=== PATIENT | female | born 1980 | race African-American/Black ===

== ENCOUNTER 2017-12-03 12:50 | Inpatient (IN) | payer OTHER ==
[2017-12-03 15:16] VITALS: BMI 22.2
--- NOTE | 2017-12-03 20:47 | HP ---
CIWA Score - CIWA Score Nausea/Vomitin Muscle Tremors: 4-Moderate,w/Arms Extend Anxiety: 4-Mod. Anxious/Guarded Agitation: 4-Moderately Restless Paroxysmal Sweats: 2 Orientation: 0-Oriented Tacttile Disturbances: 0-None Auditory Disturbances: 0-None Visual Disturbances: 0-None Headache: 0-None Present CIWA-Ar Total Score: 17 Admission ROS S - HPI Chief Complaint: Alcohol withdrawal symptoms Allergies/Adverse Reactions: Allergies Allergy/AdvReac Type Severity Reaction Status Date / Time No Known Allergies Allergy Verified 12/03/17 20:58 - Ebola screening Have you traveled outside of the country in the last 21 days: No (N) Have you had contact with anyone from an Ebola affected area: No Have you been sick,other than usual withdrawal symptoms: No Do you have a fever: No Admission Physical Exam [facility] - Vital Signs Vital Signs: Vital Signs - 24 hr 12/03/17 15:09 Temperature 97 F L Pulse Rate 91 H Respiratory 20 Rate Blood Pressure 111/67 BHS Breath Alcohol Content Breath Alcohol Content: 0 Urine Pregancy Test - Result Urine Test Results: Negative- NO Line Present Urine Drug Screen - Results Drug Screen Negative: No Urine Drug Screen Results: SINA-Cocaine, BZO-Benzodiazepines, MTD-Methadone
--- NOTE | 2017-12-03 21:52 | HP ---
CIWA Score - CIWA Score Nausea/Vomitin (VOMITING X 2) Muscle Tremors: 4-Moderate,w/Arms Extend Anxiety: 4-Mod. Anxious/Guarded Agitation: 3 Paroxysmal Sweats: No Perspiration Orientation: 0-Oriented Tacttile Disturbances: 0-None Auditory Disturbances: 0-None Visual Disturbances: 0-None Headache: 0-None Present CIWA-Ar Total Score: 14 Admission ROS S - HPI Chief Complaint: Alcohol withdrawal symptoms Allergies/Adverse Reactions: Allergies Allergy/AdvReac Type Severity Reaction Status Date / Time No Known Allergies Allergy Verified 12/03/17 20:58 History of Present Illness: 37 years female faisal a long history of alcohol dependence is admitted to detox. Patient has been in previous detox at [facility] and reports insignificant period of sobriety. Patient has past medical medical history of DM type 2, anemia and depression. Denies suicidal ideation at this time. This is her first admission to [facility]. Her urine was positive for benzodiazepine and cocaine but she asserts that her cocaine may have been tainted and that she was recently hospitalized and medicated with methadone. Exam Limitations: No Limitations - Ebola screening Have you traveled outside of the country in the last 21 days: No (N) Have you had contact with anyone from an Ebola affected area: No Have you been sick,other than usual withdrawal symptoms: No Do you have a fever: No - Review of Systems Constitutional: Chills, Loss of Appetite, Malaise, Night Sweats, Changes in sleep EENT: reports: Nose Congestion, Sinus Pressure Respiratory: reports: No Symptoms reported Cardiac: reports: No Symptoms Reported GI: reports: Poor Appetite, Poor Fluid Intake, Vomiting, Abdominal cramping : reports: No Symptoms Reported Musculoskeletal: reports: Back Pain, Muscle Pain, Muscle Weakness Integumentary: reports: Flushing Neuro: reports: Tingling, Tremors Endocrine: reports: No Symptoms Reported Hematology: reports: Anemia Psychiatric: reports: Orientated x3, Agitated, Anxious Other Systems: Reviewed and Negative Patient History - Patient Medical History Hx Anemia: Yes Hx Asthma: No Hx Chronic Obstructive Pulmonary Disease (COPD): No Hx Cardiac Disorders: No Hx Congestive Heart Failure: No Hx Hypertension: No Hx Hypercholesterolemia: No HX Cerebrovascular Accident: No Hx Seizures: No Hx Diabetes: No Hx Gastrointestinal Disorders: No Hx Liver Disease: No Hx Genitourinary Disorders: No Hx Sexually Transmitted Disorders: No Hx Human Immunodeficiency Virus (HIV): No (Negative October 2017) Hx Hepatitis C: No Hx Depression: Yes Hx Suicide Attempt: No (Denies suicidal ideation at this time) Hx Bipolar Disorder: No Hx Schizophrenia: No - Patient Surgical History Past Surgical History: No - PPD History Previous Implant?: Yes Documented Results: Negative w/o proof Implanted On Prior R Admission?: No PPD to be Administered?: Yes - Reproductive History Patient is a Female of Child Bearing Age (11 -55 yrs old): Yes LMP comment: 4 years ago. Patient : No - Smoking Cessation Smoking history: Current every day smoker Have you smoked in the past 12 months: Yes Aproximately how many cigarettes per day: 10 Hx Chewing Tobacco Use: No Initiated information on smoking cessation: Yes 'Breaking Loose' booklet given: 12/03/17 - Substance & Tx. History Hx Alcohol Use: Yes Hx Substance Use: Yes Substance Use Type: Cocaine Hx Substance Use Treatment: Yes ([facility]) - Substances Abused Alcohol Route: Oral (br) Frequency: Daily Amount used: DIANA - 2 PINTS Age of first use: 15 Date of Last Use: 12/02/17 Cocaine Route: Smoking Frequency: Daily Amount used: $50 Age of first use: 37 Date of Last Use: 12/02/17 Family Disease History - Family Disease History Family History: Denies Admission Physical Exam S - Vital Signs Vital Signs: Vital Signs - 24 hr 12/03/17 15:09 Temperature 97 F L Pulse Rate 91 H Respiratory 20 Rate Blood Pressure 111/67 - Physical General Appearance: Yes: Moderate Distress, Tremorous, Irritable, Sweating, Anxious HEENTM: Yes: EOMI, Normal ENT Inspection, Normal Voice, ALEX, Other (NO UPPER AND MISSING LOWER TEETH) Respiratory: Yes: Lungs Clear, Normal Breath Sounds, No Respiratory Distress Neck: Yes: Supple Breast: Yes: Breast Exam Deferred Cardiology: Yes: Regular Rhythm, Regular Rate, S1, S2 Abdominal: Yes: Normal Bowel Sounds, Soft Genitourinary: Yes: Within Normal Limits Back: Yes: Normal Inspection Musculoskeletal: Yes: Back pain, Muscle Pain, Muscle weakness Extremities: Yes: Tremors Neurological: Yes: Alert, Normal Mood/Affect Integumentary: Yes: Dry Lymphatic: Yes: Within Normal Limits - Diagnostic (1) Alcohol dependence with uncomplicated withdrawal Current Visit: Yes Status: Chronic (2) Cocaine dependence, uncomplicated Current Visit: Yes Status: Chronic (3) Anemia Current Visit: Yes Status: Chronic (4) Diabetes Current Visit: Yes Status: Chronic (5) Nicotine dependence Current Visit: Yes Status: Chronic Cleared for Admission [facility] - Detox or Rehab [facility] Level of Care: Medically Managed Detox Regimen/Protocol: Librium [facility] Breath Alcohol Content Breath Alcohol Content: 0 Urine Pregancy Test - Result Urine Test Results: Negative- NO Line Present Urine Drug Screen - Results Drug Screen Negative: No Urine Drug Screen Results: SINA-Cocaine, BZO-Benzodiazepines, MTD-Methadone
[2017-12-03] MEDS ORDERED: MAGNESIUM CITRATE 300 ML BOTTLE PO PRN (22:06)
[2017-12-03] MEDS ORDERED: guaiFENesin/D-METHORPHAN HB 10 ML UNIT-DOSE CUPS PO PRN (22:06)
[2017-12-03] MEDS ORDERED: NICOTINE POLACRILEX 2 MG GUM BC PRN (22:06)
[2017-12-03] MEDS ORDERED: P-EPHED 60MG/TRIPROLIDI 2.5MG TABLET PO PRN (22:06)
[2017-12-03] MEDS ORDERED: chlordiazePOXIDE HCL 25 MG CAPSULE PO PRN (22:06)
[2017-12-03] MEDS ORDERED: MAGNESIUM HYDROX 2400MG/30ML ORAL SUSPENSION 30 ML CUP PO PRN (22:06)
[2017-12-03] MEDS ORDERED: MENTHOL/PHENOL 1 EACH UD MM PRN (22:06)
[2017-12-03] MEDS ORDERED: LOPERAMIDE HCL 2 MG CAPSULE PO PRN (22:06)
[2017-12-03] MEDS ORDERED: MAG HYDROX/AL HYDROX/SIMETH 30 ML UNIT-DOSE CUP PO PRN (22:06)
[2017-12-03] MEDS ORDERED: ACETAMINOPHEN 325 MG TABLET (FP) PO PRN (22:06)
[2017-12-03] MEDS: chlordiazePOXIDE HCL 25 MG CAPSULE PO SCH (23:20)
[2017-12-04 00:24] LABS: URINE APPEARANCE CLOUDY; URINE BILIRUBIN NEGATIVE (NEGATIVE); URINE BLOOD NEGATIVE (NEGATIVE); URINE COLOR YELLOW; URINE GLUCOSE (UA) NEGATIVE (NEGATIVE); URINE KETONE NEGATIVE (NEGATIVE); URINE NITRITE NEGATIVE (NEGATIVE); URINE PROTEIN NEGATIVE (NEGATIVE); URINE UROBILINOGEN NEGATIVE mg/dL (0.2-1.0)
[2017-12-04 00:31] LABS: URINE LEUK ESTERASE 3+ (NEGATIVE)
[2017-12-04 00:40] LABS: EPI CELLS MODERATE /HPF (FEW)
[2017-12-04] MEDS: IBUPROFEN 400 MG TABLET (FP) PO PRN (06:23)
[2017-12-04] MEDS: chlordiazePOXIDE HCL 25 MG CAPSULE PO SCH ×4 (06:23→22:40)
--- NOTE | 2017-12-04 07:40 | CONSULT ---
[facility] Psychiatric Consult - Data Date of interview: 12/04/17 Identifying data: This is 37 years old single, mother of three, homeless, on SSD female with a long history of alcohol dependence admitted for detox. Patient has been in previous detox at [facility] and reports insignificant period of sobriety. Substance Abuse History: Drug Screen Negative: No. Urine Drug Screen Results: SINA-Cocaine, BZO-Benzodiazepines, MTD-Methadone. Smoking Cessation. Smoking history: Current every day smoker. Have you smoked in the past 12 months: Yes. Aproximately how many cigarettes per day: 10. Hx Chewing Tobacco Use: No. Initiated information on smoking cessation: Yes. 'Breaking Loose' booklet given : 12/03/17. - Substance & Tx. History. Hx Alcohol Use: Yes. Hx Substance Use : Yes. Substance Use Type: Cocaine. Hx Substance Use Treatment: Yes ([facility]). - Substances Abused. Alcohol. Route: Oral (br). Frequency: Daily. Amount used: DIANA - 2 PINTS. Age of first use: 15. Date of Last Use: 12/02/17. Cocaine. Route: Smoking. Frequency: Daily. Amount used: $50. Age of first use: 37. Date of Last Use: 12/02/17 Medical History: DM-2, Anemia history, MMTP history 20mg per day. Psychiatric History: Patient reports no psychiatric hospitalization history, no medications taking prior to admission. Physical/Sexual Abuse/Trauma History: Denies Additional Comment: Observation. Detox Unit Care Protocol Mental Status Exam - Mental Status Exam Alert and Oriented to: Person Cognitive Function: Fair Patient Appearance: Unkempt Mood: Anxious Affect: Labile Patient Behavior: Talkative Speech Pattern: Excessive Voice Loudness: Mildly Loud Thought Process: Circumstantial Thought Disorder: Being Controlled Hallucinations: Denies Suicidal Ideation: Denies Homicidal Ideation: Denies Insight/Judgement: Fair Sleep: Difficulty falling asleep Appetite: Weight loss Muscle strength/Tone: Mild Hypotonicity Gait/Station: Shuffling Additional Comments: Observation. Detox Unit Care Protocol Psychiatric Findings - Problem List ([place] 1, 2,3) (1) Cannabis dependence Current Visit: Yes Status: Acute (2) Benzodiazepine abuse Current Visit: Yes Status: Acute (3) Drug-induced mood disorder Current Visit: Yes Status: Acute (4) Alcohol dependence with uncomplicated withdrawal Current Visit: Yes Status: Chronic (5) Cocaine dependence, uncomplicated Current Visit: Yes Status: Chronic (6) Nicotine dependence Current Visit: Yes Status: Chronic - Initial Treatment Plan Initial Treatment Plan: Observation. Detox Unit Care Protocol
--- NOTE | 2017-12-04 09:54 | PN ---
[facility] CIWA - CIWA Score Nausea/Vomitin-Mild Nausea/No Vomiting Muscle Tremors: 4-Moderate,w/Arms Extend Anxiety: 3 Agitation: 3 Paroxysmal Sweats: 1-Minimal Palms Moist Orientation: 0-Oriented Tacttile Disturbances: 0-None Auditory Disturbances: 0-None Visual Disturbances: 0-None Headache: 0-None Present CIWA-Ar Total Score: 12 BHS COWS - Scale Resting Pulse: 1= [place] 81-100 Sweatin= Chills/Flushing Restless Observation: 3= Extraneous Movement Pupil Size: 1= Pupils >than Normal Bone or Joint Aches: 2= Severe Diffuse Aches Runny Nose/ Eye Tearin= Runny Nose/Eyes GI Upset > 30mins: 1= Stomach Cramp Tremor Observation of Outstretched Hands: 2= Slight Tremor Visible Yawning Observation: 1= 1-2x During Session Anxiety or Irritability: 2=Irritable/Anxious Goose Flesh Skin: 3=Piloerection COWS Score: 19 S Progress Note (SOAP) Subjective: joint ache muscle cramp GI distress sweat tremor anxiety irritability restlessness agitation patient reports using heroin 20 bags a day last use a week ago, went to [facility] detox, last dose methadone two days ago, Objective: 12/04/17 10:22 Vital Signs Temperature 97.9 F 12/04/17 01:46 Pulse Rate 83 12/04/17 01:46 Respiratory Rate 18 12/04/17 03:30 Blood Pressure 111/65 12/04/17 01:46 O2 Sat by Pulse Oximetry (%) Laboratory Last Values WBC 6.1 K/mm3 (4.0-10.0) 12/04/17 07:30 RBC 4.08 M/mm3 (3.60-5.2) 12/04/17 07:30 Hgb 9.0 GM/dL (10.7-15.3) L 12/04/17 07:30 Hct 29.0 % (32.4-45.2) L 12/04/17 07:30 MCV 71.2 fl (80-96) L 12/04/17 07:30 MCH 22.1 pg (25.7-33.7) L 12/04/17 07:30 MCHC 31.0 g/dl (32.0-36.0) L 12/04/17 07:30 RDW 15.8 % (11.6-15.6) H 12/04/17 07:30 Plt Count 352 K/MM3 (134-434) 12/04/17 07:30 MPV 7.4 fl (7.5-11.1) L 12/04/17 07:30 POC Glucometer 130 UNITS (80-120) 12/04/17 06:09 Urine Color Yellow 12/03/17 23:10 Urine Appearance Cloudy 12/03/17 23:10 Urine pH 6.0 (5.0-8.0) 12/03/17 23:10 Ur Specific [facility] 1.018 (1.001-1.035) 12/03/17 23:10 Urine Protein Negative (NEGATIVE) 12/03/17 23:10 Urine Glucose (UA) Negative (NEGATIVE) 12/03/17 23:10 Urine Ketones Negative (NEGATIVE) 12/03/17 23:10 Urine Blood Negative (NEGATIVE) 12/03/17 23:10 Urine Nitrite Negative (NEGATIVE) 12/03/17 23:10 Urine Bilirubin Negative (NEGATIVE) 12/03/17 23:10 Urine Urobilinogen Negative mg/dL (0.2-1.0) 12/03/17 23:10 Ur Leukocyte Esterase 3+ (NEGATIVE) H 12/03/17 23:10 Urine WBC (Auto) 13 /hpf (3-5) 12/03/17 23:10 Urine RBC (Auto) 8 /hpf (0-3) 12/03/17 23:10 Ur Epithelial Cells Moderate /HPF (FEW) 12/03/17 23:10 lab noted repeat ua 12/04/17 10:24 cows = 19 Assessment: 12/04/17 10:25 withdrawal sx Plan: continue detox adds methadone detox regimen [facility] noted patient does not use needle recent years
[2017-12-04 09:57] LABS: MCH 22.1 pg (25.7-33.7); MEAN CELL VOLUME 71.2 fl (80-96); MEAN PLT VOLUME 7.4 fl (7.5-11.1); PLATELET COUNT 352 K/MM3 (134-434); RBC 4.08 M/mm3 (3.60-5.2); RDW 15.8 % (11.6-15.6); WHITE BLOOD COUNT 6.1 K/mm3 (4.0-10.0)
[2017-12-04] MEDS ORDERED: NICOTINE 14 MG/24 HOURS TOPICAL PATCH TD SCH (10:00)
[2017-12-04 10:37] LABS: CHLORIDE 107 mmol/L (98-107); POTASSIUM 4.9 mmol/L (3.5-5.1); SODIUM 141 mmol/L (136-145)
[2017-12-04] MEDS: PRENATAL VITAMINS W/ FOLIC ACID TABLET (FP) PO SCH (10:46)
[2017-12-04] MEDS ORDERED: METHADONE HCL 10 MG TABLET (FOR DETOX USE ONLY) PO ONE (11:00)
[2017-12-04 11:01] LABS: ALBUMIN 2.8 g/dl (3.4-5.0); ALK PHOS 84 U/L (45-117); ANION GAP 7 (8-16); BILIRUBIN,TOTAL 0.3 mg/dL (0.2-1.0); BLOOD UREA NITROGEN 31 mg/dL (7-18); CALCIUM 8.7 mg/dL (8.5-10.1); CO2 27 mmol/L (21-32); CREATININE 1.4 mg/dL (0.55-1.02); GLUCOSE,RANDOM 146 mg/dL (74-106); SGOT/AST 23 U/L (15-37); SGPT/ALT 30 U/L (12-78); TOT PROT 6.4 g/dl (6.4-8.2)
--- NOTE | 2017-12-04 11:02 | EKG ---
Test Reason : Blood Pressure : / mmHG Vent. Rate : 081 BPM Atrial Rate : 081 BPM P-R Int : 138 ms QRS Dur : 082 ms QT Int : 376 ms P-R-T Axes : 000 004 036 degrees QTc Int : 436 ms NORMAL SINUS RHYTHM NORMAL ECG NO PREVIOUS ECGS AVAILABLE Confirmed by BOB STORM, MIKI ([id number]) on 12/04/2017 11:01:35 AM Referred By: Confirmed By:MIKI ROJAS MD
[2017-12-04] MEDS: METHOCARBAMOL 500 MG TABLET PO SCH ×2 (14:31→22:40)
[2017-12-04] MEDS ORDERED: diphenhydrAMINE HCL 50 MG CAPSULE PO PRN (18:45)
[2017-12-04] MEDS ORDERED: LIDOCAINE 5% TOPICAL PATCH TP ONE (20:02)
[2017-12-04] MEDS ORDERED: LIDOCAINE PATCH REMOVAL MC ONE (22:00)
[2017-12-04] MEDS ORDERED: THIAMINE HCL 100 MG TABLET (FP) PO SCH (22:00)
--- NOTE | 2017-12-04 22:12 | PN ---
[facility] Progress Note (SOAP) Subjective: " I have back pain and can not sleep and I want my methadone increase" Objective: 12/04/17 22:09 Last Vital Signs Temp Pulse Resp BP Pulse Ox 98.4 F 108 H 18 116/78 12/04/17 18:51 02 18:51 12/04/17 18:51 12/04/17 18:51 Laboratory Last Values WBC 6.1 K/mm3 (4.0-10.0) 12/04/17 07:30 RBC 4.08 M/mm3 (3.60-5.2) 12/04/17 07:30 Hgb 9.0 GM/dL (10.7-15.3) L 12/04/17 07:30 Hct 29.0 % (32.4-45.2) L 12/04/17 07:30 MCV 71.2 fl (80-96) L 12/04/17 07:30 MCH 22.1 pg (25.7-33.7) L 12/04/17 07:30 MCHC 31.0 g/dl (32.0-36.0) L 12/04/17 07:30 RDW 15.8 % (11.6-15.6) H 12/04/17 07:30 Plt Count 352 K/MM3 (134-434) 12/04/17 07:30 MPV 7.4 fl (7.5-11.1) L 12/04/17 07:30 Sodium 141 mmol/L (136-145) 12/04/17 07:30 Potassium 4.9 mmol/L (3.5-5.1) 12/04/17 07:30 Chloride 107 mmol/L (98-107) 12/04/17 07:30 Carbon Dioxide 27 mmol/L (21-32) 12/04/17 07:30 Anion Gap 7 (8-16) L 12/04/17 07:30 BUN 31 mg/dL (7-18) H 12/04/17 07:30 Creatinine 1.4 mg/dL (0.55-1.02) H 12/04/17 07:30 Creat Clearance w eGFR 42.08 (>60) 12/04/17 07:30 POC Glucometer 150 UNITS (80-120) 12/04/17 16:28 Random Glucose 146 mg/dL (74-106) H 12/04/17 07:30 Calcium 8.7 mg/dL (8.5-10.1) 12/04/17 07:30 Total Bilirubin 0.3 mg/dL (0.2-1.0) 12/04/17 07:30 AST 23 U/L (15-37) 12/04/17 07:30 ALT 30 U/L (12-78) 12/04/17 07:30 Alkaline Phosphatase 84 U/L (45-117) 12/04/17 07:30 Total Protein 6.4 g/dl (6.4-8.2) 12/04/17 07:30 Albumin 2.8 g/dl (3.4-5.0) L 12/04/17 07:30 Urine Color Yellow 12/03/17 23:10 Urine Appearance Cloudy 12/03/17 23:10 Urine pH 6.0 (5.0-8.0) 12/03/17 23:10 Ur Specific [facility] 1.018 (1.001-1.035) 12/03/17 23:10 Urine Protein Negative (NEGATIVE) 12/03/17 23:10 Urine Glucose (UA) Negative (NEGATIVE) 12/03/17 23:10 Urine Ketones Negative (NEGATIVE) 12/03/17 23:10 Urine Blood Negative (NEGATIVE) 12/03/17 23:10 Urine Nitrite Negative (NEGATIVE) 12/03/17 23:10 Urine Bilirubin Negative (NEGATIVE) 12/03/17 23:10 Urine Urobilinogen Negative mg/dL (0.2-1.0) 12/03/17 23:10 Ur Leukocyte Esterase 3+ (NEGATIVE) H 12/03/17 23:10 Urine WBC (Auto) 13 /hpf (3-5) 12/03/17 23:10 Urine RBC (Auto) 8 /hpf (0-3) 12/03/17 23:10 Ur Epithelial Cells Moderate /HPF (FEW) 12/03/17 23:10 RPR Titer Nonreactive (NONREACTIVE) 12/04/17 07:30 AOx3, self directing, no acute distress ambulating with out any abnormalities reports no urinary symptoms Assessment: 12/04/17 22:11 lumbago withdrawal symptoms Plan: Continue detox increase fluids Continue scheduled methadone elo Continue Robaxin as schedule Lidocaine patch order Benadryl qhs PRN
[2017-12-05] MEDS: IBUPROFEN 400 MG TABLET (FP) PO PRN (06:31)
[2017-12-05] MEDS: chlordiazePOXIDE HCL 25 MG CAPSULE PO SCH ×2 (06:33→10:42)
[2017-12-05] MEDS: METHOCARBAMOL 500 MG TABLET PO SCH (06:34)
[2017-12-05] MEDS ORDERED: METHADONE HCL 5 MG TABLET (FOR DETOX USE ONLY) PO ONE (10:00)
--- NOTE | 2017-12-05 10:26 | HP ---
COWS - Scale Resting Pulse: 0= [place] 80 or Below Sweatin= Chills/Flushing CIWA Score - CIWA Score Nausea/Vomitin-Mild Nausea/No Vomiting Muscle Tremors: 4-Moderate,w/Arms Extend Anxiety: 3 Agitation: 3 Paroxysmal Sweats: 1-Minimal Palms Moist Orientation: 0-Oriented Tacttile Disturbances: 0-None Auditory Disturbances: 0-None Visual Disturbances: 0-None Headache: 0-None Present CIWA-Ar Total Score: 12 Admission ROS S - HPI Allergies/Adverse Reactions: Allergies Allergy/AdvReac Type Severity Reaction Status Date / Time No Known Allergies Allergy Verified 12/03/17 20:58 - Ebola screening Have you traveled outside of the country in the last 21 days: No (N) Have you had contact with anyone from an Ebola affected area: No Have you been sick,other than usual withdrawal symptoms: No Do you have a fever: No Patient History - Patient Medical History Hx Anemia: Yes Hx Asthma: No Hx Chronic Obstructive Pulmonary Disease (COPD): No Hx Cardiac Disorders: No Hx Congestive Heart Failure: No Hx Hypertension: No Hx Hypercholesterolemia: No HX Cerebrovascular Accident: No Hx Seizures: No Hx Diabetes: No Hx Gastrointestinal Disorders: No Hx Liver Disease: No Hx Genitourinary Disorders: No Hx Sexually Transmitted Disorders: No Hx Renal Disease (ESRD): No Hx Human Immunodeficiency Virus (HIV): No (Negative October 2017) Hx Hepatitis C: No Hx Depression: Yes Hx Suicide Attempt: No (Denies suicidal ideation at this time) Hx Bipolar Disorder: No Hx Schizophrenia: No - Patient Surgical History Past Surgical History: No Hx Neurologic Surgery: No Hx Cataract Extraction: No Hx Cardiac Surgery: No Hx Lung Surgery: No Hx Breast Surgery: No Hx Breast Biopsy: No Hx Abdominal Surgery: No Hx Appendectomy: No Hx Cholecystectomy: No Hx Genitourinary Surgery: No Hx Section: No Hx Orthopedic Surgery: No Anesthesia Reaction: No - PPD History Previous Implant?: Yes Documented Results: Negative w/o proof Implanted On Prior R Admission?: No - Reproductive History Patient : No - Smoking Cessation Smoking history: Current every day smoker Have you smoked in the past 12 months: Yes Aproximately how many cigarettes per day: 10 Hx Chewing Tobacco Use: No Initiated information on smoking cessation: Yes - Substances Abused Alcohol Route: Oral (br) Frequency: Daily Amount used: DIANA - 2 PINTS Age of first use: 15 Date of Last Use: 12/02/17 Cocaine Route: Smoking Frequency: Daily Amount used: $50 Age of first use: 37 Date of Last Use: 12/02/17 Admission Physical Exam BHS - Vital Signs Vital Signs: Vital Signs - 24 hr 12/04/17 12/04/17 12/04/17 10:38 15:03 18:51 Temperature 97.1 F L 97.7 F 98.4 F Pulse Rate 89 92 H 108 H Respiratory 16 20 18 Rate Blood Pressure 97/60 102/65 116/78 12/04/17 12/05/17 12/05/17 23:17 03:30 06:00 Temperature 98.1 F 96.3 F L Pulse Rate 88 102 H Respiratory 18 18 18 Rate Blood Pressure 102/68 145/87 BHS Breath Alcohol Content Breath Alcohol Content: 0 Urine Pregancy Test - Result Urine Test Results: Negative- NO Line Present Urine Drug Screen - Results Drug Screen Negative: No Urine Drug Screen Results: SINA-Cocaine, BZO-Benzodiazepines, MTD-Methadone
--- NOTE | 2017-12-05 10:33 | PN ---
[facility] CIWA - CIWA Score Nausea/Vomitin-No Nausea/No Vomiting Muscle Tremors: 3 Anxiety: 3 Agitation: 3 Paroxysmal Sweats: 1-Minimal Palms Moist Orientation: 0-Oriented Tacttile Disturbances: 0-None Auditory Disturbances: 0-None Visual Disturbances: 0-None Headache: 0-None Present CIWA-Ar Total Score: 10 BHS COWS - Scale Resting Pulse: 1= [place] 81-100 Sweatin= Chills/Flushing Restless Observation: 3= Extraneous Movement Pupil Size: 0= Normal to Room Light Bone or Joint Aches: 2= Severe Diffuse Aches Runny Nose/ Eye Tearin= Runny Nose/Eyes GI Upset > 30mins: 2= Nausea/Diarrhea Tremor Observation of Outstretched Hands: 2= Slight Tremor Visible Yawning Observation: 2= >3x During Session Anxiety or Irritability: 2=Irritable/Anxious Goose Flesh Skin: 0=Smooth Skin COWS Score: 17 [facility] Progress Note (SOAP) Subjective: tearful "I have hard time" i want to kill myself Objective: 12/05/17 10:34 Vital Signs Temperature 96.3 F L 12/05/17 06:00 Pulse Rate 102 H 12/05/17 06:00 Respiratory Rate 18 12/05/17 06:00 Blood Pressure 145/87 12/05/17 06:00 O2 Sat by Pulse Oximetry (%) Laboratory Last Values WBC 6.1 K/mm3 (4.0-10.0) 12/04/17 07:30 RBC 4.08 M/mm3 (3.60-5.2) 12/04/17 07:30 Hgb 9.0 GM/dL (10.7-15.3) L 12/04/17 07:30 Hct 29.0 % (32.4-45.2) L 12/04/17 07:30 MCV 71.2 fl (80-96) L 12/04/17 07:30 MCH 22.1 pg (25.7-33.7) L 12/04/17 07:30 MCHC 31.0 g/dl (32.0-36.0) L 12/04/17 07:30 RDW 15.8 % (11.6-15.6) H 12/04/17 07:30 Plt Count 352 K/MM3 (134-434) 12/04/17 07:30 MPV 7.4 fl (7.5-11.1) L 12/04/17 07:30 Sodium 141 mmol/L (136-145) 12/04/17 07:30 Potassium 4.9 mmol/L (3.5-5.1) 12/04/17 07:30 Chloride 107 mmol/L (98-107) 12/04/17 07:30 Carbon Dioxide 27 mmol/L (21-32) 12/04/17 07:30 Anion Gap 7 (8-16) L 12/04/17 07:30 BUN 31 mg/dL (7-18) H 12/04/17 07:30 Creatinine 1.4 mg/dL (0.55-1.02) H 12/04/17 07:30 Creat Clearance w eGFR 42.08 (>60) 12/04/17 07:30 POC Glucometer 150 UNITS (80-120) 12/04/17 16:28 Random Glucose 146 mg/dL (74-106) H 12/04/17 07:30 Calcium 8.7 mg/dL (8.5-10.1) 12/04/17 07:30 Total Bilirubin 0.3 mg/dL (0.2-1.0) 12/04/17 07:30 AST 23 U/L (15-37) 12/04/17 07:30 ALT 30 U/L (12-78) 12/04/17 07:30 Alkaline Phosphatase 84 U/L (45-117) 12/04/17 07:30 Total Protein 6.4 g/dl (6.4-8.2) 12/04/17 07:30 Albumin 2.8 g/dl (3.4-5.0) L 12/04/17 07:30 Urine Color Yellow 12/03/17 23:10 Urine Appearance Cloudy 12/03/17 23:10 Urine pH 6.0 (5.0-8.0) 12/03/17 23:10 Ur Specific [employer] 1.018 (1.001-1.035) 12/03/17 23:10 Urine Protein Negative (NEGATIVE) 12/03/17 23:10 Urine Glucose (UA) Negative (NEGATIVE) 12/03/17 23:10 Urine Ketones Negative (NEGATIVE) 12/03/17 23:10 Urine Blood Negative (NEGATIVE) 12/03/17 23:10 Urine Nitrite Negative (NEGATIVE) 12/03/17 23:10 Urine Bilirubin Negative (NEGATIVE) 12/03/17 23:10 Urine Urobilinogen Negative mg/dL (0.2-1.0) 12/03/17 23:10 Ur Leukocyte Esterase 3+ (NEGATIVE) H 12/03/17 23:10 Urine WBC (Auto) 13 /hpf (3-5) 12/03/17 23:10 Urine RBC (Auto) 8 /hpf (0-3) 12/03/17 23:10 Ur Epithelial Cells Moderate /HPF (FEW) 12/03/17 23:10 RPR Titer Nonreactive (NONREACTIVE) 12/04/17 07:30 Hepatitis C Antibody <0.1 s/co ratio (0.0-0.9) 12/04/17 07:30 lab noted Assessment: 12/05/17 10:34 depression suicidal ideation Plan: 1:1 for suicidal ideation psychiatrist stat recommend transferred to psychiatric facility for evaluation
[2017-12-05] MEDS ORDERED: diphenhydrAMINE HCL 25 MG CAPSULE (FP) PO ONE ×2 (10:40→11:15)
[2017-12-05] MEDS: PRENATAL VITAMINS W/ FOLIC ACID TABLET (FP) PO SCH (10:42)
--- NOTE | 2017-12-05 10:42 | PN ---
Psychiatric Progress Note Vital Signs: Vital Signs Period Temp Pulse Resp BP Sys/Shields Pulse Ox Last 24 Hr 96.3 F-98.4 F 88-108 16-20 97-145/60-87 Date of Session: 12/05/17 Chief Complaint:: Suicidal ideations, crying spelles, depressed mood, non compliance with mwd HPI: As per nursing report patient depressed, not following orders, cruing and expressing suicidal ideation. Haldol 1mg po stat. Benadryl 25mg po satat. Patient refusing psychiatric medications Current Medications: Active Medications Generic Name Dose Route Start Last Admin Trade Name Freq PRN Reason Stop Dose Admin Acetaminophen 650 mg 12/03/17 22:06 Tylenol - PO Q4H PRN FEVER Al Hydroxide/Mg Hydroxide 30 ml 12/03/17 22:06 Mylanta Oral Suspension - PO Q6H PRN DYSPEPSIA Chlordiazepoxide HCl 25 mg 12/04/17 23:00 12/05/17 06:33 Librium - PO 12/05/17 17:01 25 mg [id number] TRES Administration Chlordiazepoxide HCl 15 mg 12/05/17 23:00 Librium - PO 12/06/17 17:01 [id number] TRES Chlordiazepoxide HCl 25 mg 12/03/17 22:06 Librium - PO 12/06/17 22:05 Q4H PRN WITHDRAWAL(CONT SUBST) Chlordiazepoxide HCl 10 mg 12/06/17 23:00 Librium - PO 12/07/17 17:01 [id number] TRES Diphenhydramine HCl 50 mg 12/04/17 18:45 12/04/17 22:40 Benadryl - PO 50 mg HS PRN Administration INSOMNIA Diphenhydramine HCl 25 mg 12/05/17 10:31 Benadryl - PO 12/05/17 10:32 NOW STA Eucalyptus/Menthol/Phenol/Sorbitol 1 each 12/03/17 22:06 Cepastat Lozenge - MM Q4H PRN SORE THROAT Guaifenesin 10 ml 12/03/17 22:06 Robitussin Dm - PO Q6H PRN COUGH Haloperidol 1 mg 12/05/17 10:28 Haldol - PO 12/05/17 10:29 NOW STA Ibuprofen 400 mg 12/03/17 22:06 02/15/18 06:31 Motrin - PO 400 mg Q6H PRN Administration PAIN LEVEL 4-6 Loperamide HCl 4 mg 12/03/17 22:06 Imodium - PO Q6H PRN DIARRHEA Magnesium Citrate 300 ml 12/03/17 22:06 Citroma - PO Q48H PRN CONSTIPATION Magnesium Hydroxide 30 ml 12/03/17 22:06 Milk Of Magnesia - PO DAILY PRN CONSTIPATION Methadone HCl 5 mg 12/08/17 06:00 Dolophine - PO 12/08/17 06:01 ONCE@0600 ONE Methadone HCl 15 mg 12/06/17 10:00 Dolophine - PO 12/06/17 10:01 ONCE ONE Methadone HCl 10 mg 12/07/17 10:00 Dolophine - PO 12/07/17 10:01 ONCE ONE Methocarbamol 500 mg 12/04/17 14:00 12/05/17 06:34 Robaxin - PO 500 mg TID [facility] Administration Nicotine 14 mg 12/04/17 10:00 12/04/17 10:47 Nicoderm Patch - TD 14 mg DAILY TRES Administration Nicotine Polacrilex 2 mg 12/03/17 22:06 Nicorette Gum - BC Q2H PRN NICOTINE REPLACEMENT RX Multivit/Folic Acid/Iron 1 tab 12/04/17 10:00 12/04/17 10:46 Vitamins (Sjr) - PO 1 tab DAILY TRES Administration Pseudoephedrine/Triprolidine 1 combo 12/03/17 22:06 Actifed - PO TID PRN NASAL CONGESTION Thiamine HCl 100 mg 12/04/17 22:00 12/04/17 22:40 Vitamin B1 - PO 100 mg HS TRES Administration Medication(s) Change(s): Haldol 1mg po stat. Benadryl 25mg po stat Mental Status Exam - Mental Status Exam Alert and Oriented to: Person Cognitive Function: Impaired Patient Appearance: Unkempt Mood: Depressed, Suspicious, Anxious Affect: Inappropriate Patient Behavior: Guarded, Suspicious, Distractible Speech Pattern: Delayed Voice Loudness: Moderately Soft/Quiet Thought Process: Circumstantial Thought Disorder: Delusional Hallucinations: Auditory Suicidal Ideation: Current Homicidal Ideation: Denies Insight/Judgement: Impaired Sleep: Fair Appetite: Weight loss Muscle strength/Tone: Normal Gait/Station: Normal Additional Comments: Haldol 1mg po stat. Benadryl 25mg po stst Psychiatric Treatment Plan - Problem List (1) Cannabis dependence Current Visit: Yes (2) Benzodiazepine abuse Current Visit: Yes (3) Drug-induced mood disorder Current Visit: Yes (4) Alcohol dependence with uncomplicated withdrawal Current Visit: Yes (5) Cocaine dependence, uncomplicated Current Visit: Yes (6) Nicotine dependence Current Visit: Yes Initial treatment plan: Haldol 1mg po stat. Benadryl 25mg po stat. 1:1 observation. Transfer to [facility]
[2017-12-05] MEDS ORDERED: HALOPERIDOL 1 MG TABLET (FP) PO ONE (11:15)
[2017-12-05 13:57] VITALS: BP 121/78; PULSE 87; TEMP 97.3
[2017-12-05] MEDS ORDERED: chlordiazePOXIDE 5 MG CAPSULE PO SCH (23:00)
[2017-12-06] MEDS ORDERED: METHADONE HCL 5 MG TABLET (FOR DETOX USE ONLY) PO ONE (10:00)
[2017-12-06] MEDS ORDERED: chlordiazePOXIDE HCL 10 MG CAPSULE PO SCH (23:00)
== END 2017-12-05 10:55 | disposition short-term general hospital (02) | DRG 897 ==
LOC: YASAS 12:50 → Y6N 19:46
PROVIDERS: ADMIT Internal Medicine; ATTEND Internal Medicine
PROC: HZ2ZZZZ Detoxification Services for Substance Abuse Treatment (ICD-10-PCS; principal; 2017-12-03)
DX: F13.10 Sedative, hypnotic or anxiolytic abuse, uncomplicated (principal); F14.20 Cocaine dependence, uncomplicated; F10.230 Alcohol dependence with withdrawal, uncomplicated; F12.20 Cannabis dependence, uncomplicated; F17.210 Nicotine dependence, cigarettes, uncomplicated; F19.24 Other psychoactive substance dependence with psychoactive substance-induced mood disorder
CPT/HCPCS: 36415; 71046-TC-FY; 80053; 81003; 81015; 82962; 85027; 86593; 86803; 93005; 93010

== ENCOUNTER 2017-12-05 17:00 | Inpatient (IN) | payer OTHER ==
--- NOTE | 2017-12-05 17:44 | CONSULT ---
[facility] Psychiatric Consult - Data Date of interview: 12/05/17 Admission source: [facility] Identifying data: Pt. is a 37 year old single female, mother of three, unemployed and homeless. This is one of multiple admissions for patient. Pt. admitted to detox for alcohol and cocaine dependence. Substance Abuse History: alcohol, cocaine and benzodiazepine Medical History: Anemia Psychiatric History: Pt. was transferred via 911 this morning from [facility] after expressing suicidal ideation by stating to staff, " I just feel like killing myself." Pt. taken to [facility] ER where patient was evaluated and discharged. 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 Pt. denies suicidal and homicial ideation. Pt. denies h/o psychiatric hospitalization, outpatient care and suicide attempt. Physical/Sexual Abuse/Trauma History: Denies. Mental Status Exam - Mental Status Exam Alert and Oriented to: Time, Place, Person Cognitive Function: Good Patient Appearance: Unkempt Mood: Withdrawn Affect: Flat Patient Behavior: Sedated, Fatigued Speech Pattern: Delayed Voice Loudness: Moderately Soft/Quiet Thought Process: Goal Oriented Thought Disorder: Not Present Hallucinations: Denies Suicidal Ideation: Denies Homicidal Ideation: Denies Insight/Judgement: Poor Sleep: Poorly Appetite: Fair Muscle strength/Tone: Normal Gait/Station: Normal Psychiatric Findings - Problem List ([place] 1, 2,3) (1) Insomnia Current Visit: Yes Status: Acute (2) Alcohol dependence with uncomplicated withdrawal Current Visit: Yes Status: Chronic (3) Benzodiazepine dependence Current Visit: Yes Status: Acute (4) Cocaine dependence, uncomplicated Current Visit: Yes Status: Chronic - Initial Treatment Plan Initial Treatment Plan: Psychoeducation provided. Detoxification in progress. Benadryl 50mg qhs ordered for insomnia + Vistaril 50mg q4h ordered for anxiety. Benefits and side effects discussed. Verbal consent given. Will continue to monitior.
[2017-12-05 17:58] VITALS: BMI 25.0
--- NOTE | 2017-12-05 18:24 | HP ---
COWS - Scale Resting Pulse: 0= [place] 80 or Below Sweatin= Chills/Flushing Restless Observation: 3= Extraneous Movement Pupil Size: 1= Pupils >than Normal Bone or Joint Aches: 2= Severe Diffuse Aches Runny Nose/ Eye Tearin= Runny Nose/Eyes GI Upset > 30mins: 1= Stomach Cramp Tremor Observation: 0= None Yawning Observation: 4= Several Times/Minute Anxiety or Irritability: 2=Irritable/Anxious Goose Flesh Skin: 0=Smooth Skin COWS Score: 16 CIWA Score - CIWA Score Nausea/Vomitin-No Nausea/No Vomiting Muscle Tremors: None Anxiety: 5 Agitation: 3 Paroxysmal Sweats: 2 Orientation: 2-Disoriented Date<2 days Tacttile Disturbances: 2-Mild Itch/Numbness/Burn Auditory Disturbances: 1-Very Mild Visual Disturbances: 2-Mild Sensitivity Headache: 0-None Present CIWA-Ar Total Score: 17 Admission ROS S - HPI Chief Complaint: withdrawal symptoms Allergies/Adverse Reactions: Allergies Allergy/AdvReac Type Severity Reaction Status Date / Time No Known Allergies Allergy Verified 12/05/17 19:12 History of Present Illness: 37 yo female with hx of heroin, alcohol, and cocaine dependence is here seeking detox. Past medical hx of DMII and Anemia, currently reports no medicaitons prescribe. Patient had started detox at [facility] on 12/03/17, but was sent to [place] by Dr. See earlier today for further evaluation after verbalizing that she wanted to kill herself and was cleared to return to complete detox. Currently denies suicidal / homicidal ideation. Patient is unable to report any significant period of sobriety. Reports recent hospitalization at the beginning of the month ant [facility] but was unable to specify why she was hospitalize. Patient was evaluated by Daniele Tristan NP (psych) and admission was discussed with Dr. Scherer. Exam Limitations: No Limitations - Ebola screening Have you traveled outside of the country in the last 21 days: No Have you had contact with anyone from an Ebola affected area: No Have you been sick,other than usual withdrawal symptoms: No Do you have a fever: No - Review of Systems Constitutional: Chills, Malaise, Changes in sleep, Weakness EENT: reports: Tearing, Nose Congestion Respiratory: reports: No Symptoms reported Cardiac: reports: Lightheadedness GI: reports: Poor Fluid Intake, Abdominal cramping : reports: No Symptoms Reported Musculoskeletal: reports: Joint Pain, Muscle Pain Integumentary: reports: Pruritus Neuro: reports: Dizziness Endocrine: reports: No Symptoms Reported Hematology: reports: Anemia Psychiatric: reports: Anxious, Depressed, other (AOXPP) Other Systems: Reviewed and Negative Patient History - Patient Medical History Hx Anemia: Yes Hx Asthma: No Hx Chronic Obstructive Pulmonary Disease (COPD): No Hx Cancer: No Hx Cardiac Disorders: No Hx Congestive Heart Failure: No Hx Hypertension: No Hx Hypercholesterolemia: No Hx Pacemaker: No HX Cerebrovascular Accident: No Hx Seizures: No Hx Dementia: No Hx Diabetes: No Hx Gastrointestinal Disorders: No Hx Liver Disease: No Hx Genitourinary Disorders: No Hx Sexually Transmitted Disorders: No Hx Renal Disease (ESRD): No Hx Thyroid Disease: No Hx Human Immunodeficiency Virus (HIV): No (Negative October 2017) Hx Hepatitis C: No Hx Depression: Yes Hx Suicide Attempt: No (Denies suicidal ideation at this time) Hx Bipolar Disorder: No Hx Schizophrenia: No - Patient Surgical History Past Surgical History: No Hx Neurologic Surgery: No Hx Cataract Extraction: No Hx Cardiac Surgery: No Hx Lung Surgery: No Hx Breast Surgery: No Hx Breast Biopsy: No Hx Abdominal Surgery: No Hx Appendectomy: No Hx Cholecystectomy: No Hx Genitourinary Surgery: No Hx Section: No Hx Orthopedic Surgery: No Anesthesia Reaction: No - PPD History PPD to be Administered?: No - Reproductive History Patient is a Female of Child Bearing Age (11 -55 yrs old): No - Smoking Cessation Smoking history: Current every day smoker Have you smoked in the past 12 months: Yes Aproximately how many cigarettes per day: 10 Hx Chewing Tobacco Use: No Initiated information on smoking cessation: Yes 'Breaking Loose' booklet given: 12/05/17 - Substance & Tx. History Hx Alcohol Use: Yes Hx Substance Use: Yes Substance Use Type: Alcohol, Cocaine, Heroin Hx Substance Use Treatment: Yes ([facility] Oct 2017) - Substances Abused Alcohol Route: Oral Frequency: Daily Amount used: 1 pint Ivis Age of first use: 13 Date of Last Use: 12/02/17 Heroin Route: Inhalation Frequency: Daily Amount used: 2 bundles Age of first use: 37 Date of Last Use: 12/02/17 Cocaine Route: Inhalation Frequency: Daily Amount used: 2 bundles Age of first use: 37 Date of Last Use: 12/02/17 Family Disease History - Family Disease History Family Disease History: Diabetes: Mother (), Other: Father (alive, unkwn) , Mother Admission Physical Exam [facility] - Vital Signs Vital Signs: Vital Signs - 24 hr 12/05/17 17:54 Temperature 96.9 F L Pulse Rate 79 Respiratory 18 Rate Blood Pressure 102/73 - Physical General Appearance: Yes: Disheveled, Irritable, Anxious HEENTM: Yes: Within Normal Limits, EOMI, Hearing grossly Normal, Normal ENT Inspection, Normocephalic, Normal Voice, ALEX, Pharynx Normal, Tm's normal, Other (poor dentation) Respiratory: Yes: Chest Non-Tender, Lungs Clear, Normal Breath Sounds, No Respiratory Distress, No Accessory Muscle Use Neck: Yes: No masses,lesions,Nodules, Trachea in good position Breast: Yes: Breast Exam Deferred Cardiology: Yes: Regular Rhythm, Regular Rate, S1, S2 Abdominal: Yes: Normal Bowel Sounds, Non Tender, Soft, Protuberent Genitourinary: Yes: Within Normal Limits Back: Yes: Normal Inspection Musculoskeletal: Yes: full range of Motion, Gait Steady Extremities: Yes: Normal Capillary Refill, Normal Inspection, Normal Range of Motion, Non-Tender Neurological: Yes: antenna machine operator II-XII NML intact, Fully Oriented, Alert, Motor Strength 5/5, Depressed Affect, Other (irritable, anxious) Integumentary: Yes: Normal Color, Dry, Warm Lymphatic: Yes: Within Normal Limits - Diagnostic (1) Heroin dependence Current Visit: Yes Status: Chronic (2) Alcohol dependence with uncomplicated withdrawal Current Visit: Yes Status: Acute (3) Cocaine dependence, uncomplicated Current Visit: Yes Status: Chronic (4) Anemia Current Visit: Yes Status: Chronic (5) Nicotine dependence Current Visit: Yes Status: Chronic (6) Diabetes mellitus type 2, noninsulin dependent Current Visit: Yes Status: Chronic Cleared for Admission [facility] - Detox or Rehab [facility] Level of Care: Medically Managed Detox Regimen/Protocol: Methadone/Librium [facility] Breath Alcohol Content Breath Alcohol Content: 0 Urine Pregancy Test - Result Urine Test Results: Negative- NO Line Present Urine Drug Screen - Results Drug Screen Negative: No Urine Drug Screen Results: SINA-Cocaine, BZO-Benzodiazepines, MTD-Methadone
[2017-12-05] MEDS ORDERED: MAG HYDROX/AL HYDROX/SIMETH 30 ML UNIT-DOSE CUP PO PRN (18:47)
[2017-12-05] MEDS ORDERED: ACETAMINOPHEN 325 MG TABLET (FP) PO PRN (18:47)
[2017-12-05] MEDS ORDERED: LOPERAMIDE HCL 2 MG CAPSULE PO PRN (18:47)
[2017-12-05] MEDS ORDERED: MAGNESIUM HYDROX 2400MG/30ML ORAL SUSPENSION 30 ML CUP PO PRN (18:47)
[2017-12-05] MEDS ORDERED: MENTHOL/PHENOL 1 EACH UD MM PRN (18:47)
[2017-12-05] MEDS ORDERED: MAGNESIUM CITRATE 300 ML BOTTLE PO PRN (18:47)
[2017-12-05] MEDS ORDERED: guaiFENesin/D-METHORPHAN HB 10 ML UNIT-DOSE CUPS PO PRN (18:47)
[2017-12-05] MEDS ORDERED: P-EPHED 60MG/TRIPROLIDI 2.5MG TABLET PO PRN (18:47)
[2017-12-05] MEDS ORDERED: chlordiazePOXIDE HCL 25 MG CAPSULE PO PRN (18:58)
[2017-12-05] MEDS ORDERED: METHADONE HCL 10 MG TABLET PO ONE (19:15)
[2017-12-05] MEDS: chlordiazePOXIDE HCL 25 MG CAPSULE PO ONE ×2 (20:07→20:14)
[2017-12-05] MEDS: chlordiazePOXIDE 5 MG CAPSULE PO SCH (22:54)
[2017-12-05] MEDS: THIAMINE HCL 100 MG TABLET (FP) PO SCH (22:54)
[2017-12-05] MEDS ORDERED: diphenhydrAMINE HCL 25 MG CAPSULE (FP) PO ONE (22:56)
[2017-12-05] MEDS: diphenhydrAMINE HCL 50 MG CAPSULE PO PRN (22:59)
[2017-12-05] MEDS ORDERED: chlordiazePOXIDE HCL 10 MG CAPSULE PO SCH (23:00)
[2017-12-05 23:30] LABS: URINE APPEARANCE CLEAR; URINE BILIRUBIN NEGATIVE (NEGATIVE); URINE BLOOD NEGATIVE (NEGATIVE); URINE COLOR STRAW; URINE GLUCOSE (UA) NEGATIVE (NEGATIVE); URINE KETONE NEGATIVE (NEGATIVE); URINE LEUK ESTERASE TRACE (NEGATIVE); URINE NITRITE NEGATIVE (NEGATIVE); URINE PROTEIN NEGATIVE (NEGATIVE); URINE UROBILINOGEN NEGATIVE mg/dL (0.2-1.0)
[2017-12-05 23:33] LABS: EPI CELLS RARE /HPF (FEW)
[2017-12-06] MEDS: IBUPROFEN 400 MG TABLET (FP) PO PRN ×2 (01:27→15:35)
[2017-12-06] MEDS ORDERED: METHADONE HCL 10 MG TABLET PO ONE ×2 (06:00)
[2017-12-06] MEDS: chlordiazePOXIDE 5 MG CAPSULE PO SCH ×3 (06:09→17:49)
[2017-12-06] MEDS ORDERED: METHADONE HCL 5 MG TABLET (FOR DETOX USE ONLY) PO ONE (10:00)
[2017-12-06] MEDS: PRENATAL VITAMINS W/ FOLIC ACID TABLET (FP) PO SCH (11:04)
--- NOTE | 2017-12-06 11:29 | PN ---
[facility] CIWA - CIWA Score Nausea/Vomitin-No Nausea/No Vomiting Muscle Tremors: 3 Anxiety: 3 Agitation: 3 Paroxysmal Sweats: 3 Orientation: 0-Oriented Tacttile Disturbances: 0-None Auditory Disturbances: 0-None Visual Disturbances: 0-None Headache: 0-None Present CIWA-Ar Total Score: 12 BHS COWS - Scale Resting Pulse: 1= [place] 81-100 Sweatin=Flushed/Facial Moisture Restless Observation: 1= Difficult to Sit Still Pupil Size: 5= Only [place] Seen Bone or Joint Aches: 1= Mild Discomfort Runny Nose/ Eye Tearin= Nasal Congestion GI Upset > 30mins: 1= Stomach Cramp Tremor Observation of Outstretched Hands: 1= Tremor [place], Not Seen Yawning Observation: 1= 1-2x During Session Anxiety or Irritability: 1=Feels Anxious/Irritable Goose Flesh Skin: 0=Smooth Skin COWS Score: 15 S Progress Note (SOAP) Subjective: irritable agitation sweats shakes interrupted sleep Objective: 12/06/17 11:28 Vital Signs Temperature 97.1 F L 12/06/17 11:26 Pulse Rate 88 12/06/17 11:26 Respiratory Rate 18 12/06/17 11:26 Blood Pressure 95/67 12/06/17 11:26 O2 Sat by Pulse Oximetry (%) Laboratory Tests 12/05/17 23:10 Urine Color Straw Urine Appearance Clear Urine pH 5.0 Ur Specific [place] 1.012 Urine Protein Negative Urine Glucose (UA) Negative Urine Ketones Negative Urine Blood Negative Urine Nitrite Negative Urine Bilirubin Negative Urine Urobilinogen Negative Ur Leukocyte Esterase Trace Urine WBC (Auto) 1 Urine RBC (Auto) 1 Ur Epithelial Cells Rare labs pending aaox3 ambulating no acute distress Assessment: 12/06/17 11:28 withdrawal sx Plan: continue detox increase fluids labs pending
[2017-12-06] MEDS: hydrOXYzine PAMOATE 50 MG CAPSULE (FP) PO PRN (14:15)
[2017-12-06] MEDS ORDERED: HALOPERIDOL 2 MG TABLET PO ONE (14:37)
[2017-12-06] MEDS ORDERED: diphenhydrAMINE HCL 25 MG CAPSULE (FP) PO ONE ×2 (14:38→15:30)
[2017-12-06] MEDS ORDERED: QUEtiapine FUMARATE 50 MG TABLET PO ONE ×2 (15:15→15:45)
[2017-12-06] MEDS ORDERED: diphenhydrAMINE HCL 50 MG CAPSULE PO ONE (15:45)
[2017-12-06] MEDS ORDERED: IBUPROFEN 600 MG TABLET (FP) PO PRN (15:45)
--- NOTE | 2017-12-06 16:40 | PN ---
Psychiatric Progress Note Vital Signs: Vital Signs Period Temp Pulse Resp BP Sys/Shields Pulse Ox Last 24 Hr 96.8 F-98.2 F 79-95 18-20 95-137/61-89 Date of Session: 12/06/17 Chief Complaint:: "LEAVE ME ALONE" HPI: Pt. admitted for cocaine, benzodiazepine, opiate, alcohol dependence. ROS: Unremarkable Current Medications: Active Medications Generic Name Dose Route Start Last Admin Trade Name Freq PRN Reason Stop Dose Admin Acetaminophen 650 mg 12/05/17 18:47 12/06/17 06:12 Tylenol - PO 650 mg Q4H PRN Administration FEVER Al Hydroxide/Mg Hydroxide 30 ml 12/05/17 18:47 Mylanta Oral Suspension - PO Q6H PRN DYSPEPSIA Chlordiazepoxide HCl 25 mg 12/05/17 18:58 12/06/17 01:27 Librium - PO 12/06/17 18:57 25 mg Q4H PRN Administration WITHDRAWAL(CONT SUBST) Chlordiazepoxide HCl 15 mg 12/05/17 23:00 12/06/17 11:03 Librium - PO 12/06/17 17:01 15 mg [id number] TRES Administration Chlordiazepoxide HCl 10 mg 12/06/17 23:00 Librium - PO 12/07/17 17:01 [id number] TRES Diphenhydramine HCl 50 mg 12/05/17 22:00 12/05/17 22:59 Benadryl - PO 50 mg HS PRN Administration INSOMNIA Eucalyptus/Menthol/Phenol/Sorbitol 1 each 12/05/17 18:47 Cepastat Lozenge - MM Q4H PRN SORE THROAT Guaifenesin 10 ml 12/05/17 18:47 Robitussin Dm - PO Q6H PRN COUGH Hydroxyzine Pamoate 50 mg 12/05/17 17:53 12/06/17 14:15 Vistaril - PO 50 mg Q4H PRN Administration AGITATION Ibuprofen 600 mg 12/06/17 15:45 Motrin - PO Q6H PRN PAIN LEVEL 6-10 Loperamide HCl 4 mg 12/05/17 18:47 Imodium - PO Q6H PRN DIARRHEA Magnesium Citrate 300 ml 12/05/17 18:47 Citroma - PO Q48H PRN CONSTIPATION Magnesium Hydroxide 30 ml 12/05/17 18:47 Milk Of Magnesia - PO DAILY PRN CONSTIPATION Methadone HCl 10 mg 12/07/17 10:00 Dolophine - PO 12/07/17 10:01 ONCE ONE Methadone HCl 5 mg 12/08/17 06:00 Dolophine - PO 12/08/17 06:01 ONCE ONE Multivit/Folic Acid/Iron 1 tab 12/06/17 10:00 12/06/17 11:04 Vitamins (Sjr) - PO 1 tab DAILY TRES Administration Pseudoephedrine/Triprolidine 1 combo 12/05/17 18:47 Actifed - PO TID PRN NASAL CONGESTION Thiamine HCl 100 mg 12/05/17 22:00 12/05/17 22:54 Vitamin B1 - PO 100 mg HS TRES Administration Medication(s) Change(s): Seroquel 50mg BID ordered. Current Side Effect: No Lab tests ordered: No Lab tests reviewed: Yes Provider note:: Order placed by staff for psychiatric reconsultation. Steam Conditioner Operator unable to enter room due to patient unwilling to put her cloth on. After multiple attempts by staff patient was able to comply and was assisted in putting her cloth on. Upon approach, patient presented as irritable, agitated, restless, unpredictable,and a few minutes later was observed walking into different rooms. Pt. denies suicidal and homicidal ideation but refuses to answer further questions. Patient placed 1:1 for safety and unpredictable behavior. Total face to face time:: 35 Mental Status Exam - Mental Status Exam Alert and Oriented to: Time, Place, Person Cognitive Function: Fair Patient Appearance: Unkempt Mood: Withdrawn, Irritable Affect: Mood Congruent Patient Behavior: Fatigued, Uncooperative, Agitated Speech Pattern: Delayed Voice Loudness: Mildly Loud Thought Process: Goal Oriented (Refusing to answer questions. ) Thought Disorder: Not Present Hallucinations: Denies Suicidal Ideation: Denies Homicidal Ideation: Denies Insight/Judgement: Poor Sleep: Poorly Appetite: Poor Muscle strength/Tone: Normal Gait/Station: Normal Psychiatric Treatment Plan - Problem List (1) Insomnia Current Visit: Yes (2) Alcohol dependence with uncomplicated withdrawal Current Visit: Yes (3) Benzodiazepine dependence Current Visit: Yes (4) Cocaine dependence, uncomplicated Current Visit: Yes (5) Heroin dependence Current Visit: Yes
--- NOTE | 2017-12-06 18:09 | PN ---
[facility] Progress Note Note: Psychiatry Attending's note : Case presented by restaurant attendant Blake. Chart reviewed.Discussed with nursing staff on duty. Noted recent transfer to [facility] psychiatric emergency department. Evaluated at [facility] and released back to [facility] (12/05/17). Clinical scenario : Erratic,inappropriate behavior (disrobing),agitation,restlessness,oblivious to redirections. Patient is approached at bedside by this sheet writer for evaluation of mental status. Ms Ramírez is found lying in bed.Uncooperative.Refuses to converse with ent consultant. Noted as bizarre,unpredictable,invested in somatic complaints (non-specific pain ). Not aggressive.Able to follow simple commands.Calm in bed at time of this report. Plan : Continue Constant observation for safety. Agree with seroquel 50 mg po bid. Titrate seroquel as clinically indicated. Medical coverage. Liaison Psychiatry will follow.
[2017-12-06] MEDS ORDERED: QUEtiapine FUMARATE 50 MG TABLET PO SCH (22:00)
[2017-12-06] MEDS ORDERED: chlordiazePOXIDE 5 MG CAPSULE PO SCH (23:00)
[2017-12-06] MEDS: chlordiazePOXIDE HCL 10 MG CAPSULE PO SCH (23:26)
[2017-12-06] MEDS: THIAMINE HCL 100 MG TABLET (FP) PO SCH (23:27)
[2017-12-07] MEDS: chlordiazePOXIDE HCL 10 MG CAPSULE PO SCH ×3 (05:34→18:28)
[2017-12-07] MEDS ORDERED: METHADONE HCL 10 MG TABLET PO ONE ×2 (06:00)
[2017-12-07] MEDS ORDERED: METHADONE HCL 10 MG TABLET (FOR DETOX USE ONLY) PO ONE (10:00)
[2017-12-07] MEDS: PRENATAL VITAMINS W/ FOLIC ACID TABLET (FP) PO SCH (10:48)
--- NOTE | 2017-12-07 10:51 | PN ---
S CIWA - CIWA Score Nausea/Vomitin Muscle Tremors: 3 Anxiety: 3 Agitation: 3 Paroxysmal Sweats: No Perspiration Orientation: 0-Oriented Tacttile Disturbances: 1-Very Mild Itch/Numbness Auditory Disturbances: 1-Very Mild Visual Disturbances: 0-None Headache: 2-Mild CIWA-Ar Total Score: 15 BHS COWS - Scale Resting Pulse: 2= [place] 101-120 Sweatin= Chills/Flushing Restless Observation: 3= Extraneous Movement Pupil Size: 1= Pupils >than Normal Bone or Joint Aches: 2= Severe Diffuse Aches Runny Nose/ Eye Tearin= Nasal Congestion GI Upset > 30mins: 2= Nausea/Diarrhea Tremor Observation of Outstretched Hands: 2= Slight Tremor Visible Yawning Observation: 1= 1-2x During Session Anxiety or Irritability: 2=Irritable/Anxious Goose Flesh Skin: 0=Smooth Skin COWS Score: 17 BHS Progress Note (SOAP) Subjective: ALERT,IRRITABLE,ANXIOUS,INTERRUPTED SLEEP, Objective: 12/07/17 10:49 Vital Signs Temperature 100.0 F H 12/07/17 09:51 Pulse Rate 99 H 12/07/17 09:51 Respiratory Rate 16 12/07/17 09:51 Blood Pressure 133/90 12/07/17 09:51 O2 Sat by Pulse Oximetry (%) Assessment: 12/07/17 10:49 WITHDRAWAL SYMPTOM Plan: CONTINUE DETOX,PSYCHIATRIC REEVALUATION
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
[2017-12-07] MEDS: hydrOXYzine PAMOATE 50 MG CAPSULE (FP) PO PRN (19:07)
[2017-12-07] MEDS: THIAMINE HCL 100 MG TABLET (FP) PO SCH (22:24)
[2017-12-07] MEDS: diphenhydrAMINE HCL 50 MG CAPSULE PO PRN (22:25)
--- NOTE | 2017-12-07 22:58 | PN ---
[facility] Progress Note Note: Psychiatry Attending's note (delayed) : Met with the medical attending,Dr Ordaz. Around 4 pm.On .Case revisited. At the time,patient was off unit. Taken to [facility] ED for pelvic examination. Disposition discussed with Dr Ordaz. Plan : . Ms Ramírez can return to [address]. . Detoxification treatment to be resumed. . Pursue plan for transition to rehabilitation. . Provide support/empathy but maintain firm limits. . NO indication for 1:1 constant observation. . Downgraded to close observation.Frequent rounds. (to be performed by female staff in pairs as a precaution) . Psychiatric re-consult as needed. . Contact psychiatrist on-call if behavioral dyscontrol. (see Psychiatry on-call schedule for information) . Discussed with nurse on duty,BENNETT Vickers. 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 Impression : Personality Disorder NOS.
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
[2017-12-08] MEDS: hydrOXYzine PAMOATE 50 MG CAPSULE (FP) PO PRN ×2 (01:17→05:10)
[2017-12-08] MEDS ORDERED: METHADONE HCL 10 MG TABLET PO ONE (06:00)
[2017-12-08] MEDS ORDERED: METHADONE HCL 5 MG TABLET (FOR DETOX USE ONLY) PO ONE (06:00)
[2017-12-08 06:40] VITALS: BP 106/66; PULSE 86; TEMP 97.3
--- NOTE | 2017-12-08 09:03 | PN ---
[facility] Progress Note Note: case discussed with doctor
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
--- NOTE | 2017-12-08 09:30 | DS ---
[facility] Detox Discharge Summary Admission Date: 12/05/17 Discharge Date: 12/08/17 - History Present History: Alcohol Dependence, Opioid Dependence Additional Comments: patient completed detox regimen, case discussed with psychiatrist Dr. Phillips re evaluated the patient cleared for discharged, case discussed with application development director, recommend input from nursing supervisor packing room, case discussed with nursing supervisor packing room, patient can be discharged [facility] follow up - Physical Exam Results Vital Signs: Vital Signs Temperature 97.3 F L 12/08/17 06:02 Pulse Rate 86 12/08/17 06:02 Respiratory Rate 16 12/08/17 06:02 Blood Pressure 106/66 12/08/17 06:02 O2 Sat by Pulse Oximetry (%) Pertinent Admission Physical Exam Findings: withdrawal sx Vital Signs Temperature 97.3 F L 12/08/17 06:02 Pulse Rate 86 12/08/17 06:02 Respiratory Rate 16 12/08/17 06:02 Blood Pressure 106/66 12/08/17 06:02 O2 Sat by Pulse Oximetry (%) Laboratory Last Values POC Glucometer 199 UNITS (80-120) 12/08/17 05:08 Urine Color Straw 12/05/17 23:10 Urine Appearance Clear 12/05/17 23:10 Urine pH 5.0 (5.0-8.0) 12/05/17 23:10 Ur Specific [place] 1.012 (1.001-1.035) 12/05/17 23:10 Urine Protein Negative (NEGATIVE) 12/05/17 23:10 Urine Glucose (UA) Negative (NEGATIVE) 12/05/17 23:10 Urine Ketones Negative (NEGATIVE) 12/05/17 23:10 Urine Blood Negative (NEGATIVE) 12/05/17 23:10 Urine Nitrite Negative (NEGATIVE) 12/05/17 23:10 Urine Bilirubin Negative (NEGATIVE) 12/05/17 23:10 Urine Urobilinogen Negative mg/dL (0.2-1.0) 12/05/17 23:10 Ur Leukocyte Esterase Trace (NEGATIVE) 12/05/17 23:10 Urine WBC (Auto) 1 /hpf (3-5) 12/05/17 23:10 Urine RBC (Auto) 1 /hpf (0-3) 12/05/17 23:10 Ur Epithelial Cells Rare /HPF (FEW) 12/05/17 23:10 lab noted Laboratory Tests 12/05/17 12/08/17 23:10 05:08 POC Glucometer 199 Urine Color Straw Urine Appearance Clear Urine pH 5.0 Ur Specific [place] 1.012 Urine Protein Negative Urine Glucose (UA) Negative Urine Ketones Negative Urine Blood Negative Urine Nitrite Negative Urine Bilirubin Negative Urine Urobilinogen Negative Ur Leukocyte Esterase Trace Urine WBC (Auto) 1 Urine RBC (Auto) 1 Ur Epithelial Cells Rare CBC,CMP POC Glucometer 199 UNITS (80-120) 12/08/17 05:08 - Treatment Hospital Course: Detox Protocol Followed, Detoxed Safely, Responded well, Discharged Condition Good, Rehab Referral Accepted Patient has Accepted a Rehab Referral to: [facility] - Medication Discharge Medications: Ambulatory Orders NK [No Known Home Medication] 12/03/17 - AMA Did Patient Leave Against Medical Advice: No
[2017-12-08 10:59] LABS: HEMOGLOBIN 8.6 GM/dL (10.7-15.3); MCH 22.1 pg (25.7-33.7); MCHC 30.8 g/dl (32.0-36.0); MEAN CELL VOLUME 71.9 fl (80-96); MEAN PLT VOLUME 7.4 fl (7.5-11.1); PLATELET COUNT 352 K/MM3 (134-434); RDW 16.4 % (11.6-15.6); WHITE BLOOD COUNT 6.4 K/mm3 (4.0-10.0)
[2017-12-08 11:08] LABS: ANION GAP 7 (8-16); BLOOD UREA NITROGEN 39 mg/dL (7-18); CALCIUM 8.8 mg/dL (8.5-10.1); CHLORIDE 108 mmol/L (98-107); CO2 25 mmol/L (21-32); GLUCOSE,RANDOM 103 mg/dL (74-106); POTASSIUM 5.6 mmol/L (3.5-5.1); SODIUM 140 mmol/L (136-145)
[2017-12-08 11:12] LABS: ALK PHOS 86 U/L (45-117); BILIRUBIN,TOTAL 0.2 mg/dL (0.2-1.0); CREATININE 1.5 mg/dL (0.55-1.02); SGOT/AST 19 U/L (15-37); SGPT/ALT 26 U/L (12-78); TOT PROT 7.3 g/dl (6.4-8.2)
== END 2017-12-08 09:25 | disposition home or self-care (01) | DRG 897 ==
LOC: YASAS 17:00 → Y6N 19:06
PROVIDERS: ADMIT Internal Medicine; ATTEND Internal Medicine
PROC: HZ2ZZZZ Detoxification Services for Substance Abuse Treatment (ICD-10-PCS; principal; 2017-12-05)
DX: F11.23 Opioid dependence with withdrawal (principal); F13.20 Sedative, hypnotic or anxiolytic dependence, uncomplicated; F14.20 Cocaine dependence, uncomplicated; T76.21XA Adult sexual abuse, suspected, initial encounter; F10.230 Alcohol dependence with withdrawal, uncomplicated; F17.210 Nicotine dependence, cigarettes, uncomplicated; F19.24 Other psychoactive substance dependence with psychoactive substance-induced mood disorder; F60.9 Personality disorder, unspecified; D64.9 Anemia, unspecified; E11.9 Type 2 diabetes mellitus without complications; G47.00 Insomnia, unspecified
CPT/HCPCS: 36415; 80053; 81003; 81015; 82140; 82962; 85027

== ENCOUNTER 2017-12-07 16:30 | Emergency (ER) | payer OTHER ==
[2017-12-07 17:02] VITALS: BP 120/74; PULSE 77; TEMP 97.3; BMI 19.3
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
== END 2017-12-07 18:40 | disposition short-term general hospital (02) ==
LOC: JER 16:30
DX: T76.21XA Adult sexual abuse, suspected, initial encounter (principal); Y07.9 Unspecified perpetrator of maltreatment and neglect; Y92.238 Other place in hospital as the place of occurrence of the external cause
CPT/HCPCS: 99282-25

== ENCOUNTER 2018-08-09 13:53 | Inpatient (IN) | payer OTHER ==
[2018-08-09 14:48] VITALS: BMI 20.9
--- NOTE | 2018-08-09 20:18 | HP ---
COWS - Scale Resting Pulse: 1= [place] 81-100 Sweatin= Chills/Flushing Restless Observation: 3= Extraneous Movement Pupil Size: 1= Pupils >than Normal Bone or Joint Aches: 2= Severe Diffuse Aches Runny Nose/ Eye Tearin= Runny Nose/Eyes GI Upset > 30mins: 2= Nausea/Diarrhea Tremor Observation: 2= Slight Tremor Visible Yawning Observation: 1= 1-2x During Session Anxiety or Irritability: 2=Irritable/Anxious Goose Flesh Skin: 0=Smooth Skin COWS Score: 17 CIWA Score - CIWA Score Nausea/Vomitin Muscle Tremors: 2 Anxiety: 2 Agitation: 2 Paroxysmal Sweats: 1-Minimal Palms Moist Orientation: 0-Oriented Tacttile Disturbances: 1-Very Mild Itch/Numbness Auditory Disturbances: 1-Very Mild Visual Disturbances: 1-Very Mild Sensitivity Headache: 2-Mild CIWA-Ar Total Score: 14 Admission ROS BHS - HPI Chief Complaint: i need help to stop using heroin and crack and alcohol Allergies/Adverse Reactions: Allergies Allergy/AdvReac Type Severity Reaction Status Date / Time No Known Allergies Allergy Verified 08/09/18 16:59 History of Present Illness: this 38 years old female with heroin and crack dependence and alcohol,seeking detox,withdrawal symptom,last detox [facility] 12/05/17 to 12/08/17 type2 dm non compliance,iddm weight loss nicotine dependence syncope anxiety,depression,insomnia no significant period of sobriety Exam Limitations: No Limitations - Ebola screening Have you traveled outside of the country in the last 21 days: No (N) Have you had contact with anyone from an Ebola affected area: No Have you been sick,other than usual withdrawal symptoms: No Do you have a fever: No - Review of Systems Constitutional: Chills, Loss of Appetite, Malaise, Night Sweats, Changes in sleep, Unintentional Wgt. Loss EENT: reports: Tearing, Nose Congestion Respiratory: reports: No Symptoms reported Cardiac: reports: No Symptoms Reported GI: reports: Poor Appetite, Vomiting, Abdominal cramping : reports: No Symptoms Reported Musculoskeletal: reports: Back Pain, Joint Pain, Muscle Pain Integumentary: reports: Dryness Neuro: reports: Headache, Tremors Endocrine: reports: No Symptoms Reported Hematology: reports: No Symptoms Reported Psychiatric: reports: Judgement Intact, Mood/Affect Appropiate, Orientated x3, Anxious, Depressed (insomnia) Patient History - Patient Medical History Hx Anemia: Yes (no medication) Hx Asthma: No Hx Chronic Obstructive Pulmonary Disease (COPD): No Hx Cancer: No Hx Cardiac Disorders: No Hx Congestive Heart Failure: No Hx Hypertension: No Hx Hypercholesterolemia: No Hx Pacemaker: No HX Cerebrovascular Accident: No Hx Seizures: No Hx Dementia: No Hx Diabetes: No Hx Gastrointestinal Disorders: No Hx Liver Disease: No Hx Genitourinary Disorders: No Hx Sexually Transmitted Disorders: No Hx Renal Disease (ESRD): No Hx Thyroid Disease: No Hx Human Immunodeficiency Virus (HIV): No (Negative October 2017) Hx Hepatitis C: No Hx Depression: Yes (no medication) Hx Suicide Attempt: No (Denies suicidal ideation at this time) Hx Bipolar Disorder: No Hx Schizophrenia: No Other Medical History: no suicidal,no homicidal - Patient Surgical History Past Surgical History: No Hx Neurologic Surgery: No Hx Cataract Extraction: No Hx Cardiac Surgery: No Hx Lung Surgery: No Hx Breast Surgery: No Hx Breast Biopsy: No Hx Abdominal Surgery: No Hx Appendectomy: No Hx Cholecystectomy: No Hx Genitourinary Surgery: No Hx Section: No Hx Orthopedic Surgery: No Anesthesia Reaction: No - PPD History Previous Implant?: Yes Documented Results: Negative w/o proof Implanted On Prior [facility] Admission?: No PPD to be Administered?: Yes - Reproductive History Patient is a Female of Child Bearing Age (11 -55 yrs old): Yes Last Menstrual Period: 03/04/17 Patient : No - Smoking Cessation Smoking history: Current every day smoker Have you smoked in the past 12 months: Yes Aproximately how many cigarettes per day: 10 Hx Chewing Tobacco Use: No Initiated information on smoking cessation: Yes 'Breaking Loose' booklet given: 08/09/18 - Substance & Tx. History Hx Alcohol Use: Yes Hx Substance Use: Yes Substance Use Type: Alcohol, Cocaine, Heroin Hx Substance Use Treatment: Yes ([facility] 12/05/17 to 12/08/17) - Substances Abused Heroin Route: Injection Frequency: Daily Amount used: 2 BUNDLE Age of first use: 21 Date of Last Use: 08/09/18 Crack Route: Smoking Frequency: Daily Amount used: 2 BUNDLE Age of first use: 21 Date of Last Use: 08/09/18 Alcohol Route: Oral Frequency: Daily Amount used: 2pints of vodka/2 of 40 ozs of beer Age of first use: 17 Date of Last Use: 08/09/18 Family Disease History - Family Disease History Family Disease History: Diabetes: Mother (), Other: Father (alive, unknown), Mother Admission Physical Exam [facility] - Vital Signs Vital Signs: Vital Signs - 24 hr 08/09/18 14:34 Temperature 99.4 F Pulse Rate 82 Respiratory 18 Rate Blood Pressure 104/73 - Physical General Appearance: Yes: Moderate Distress, Tremorous, Irritable, Sweating, Anxious HEENTM: Yes: Normal ENT Inspection, ALEX, Pharynx Normal, Nasal Congestion, Other (poor oral hygiene dermatitis of scalp) Respiratory: Yes: Normal Breath Sounds, No Respiratory Distress Neck: Yes: Within Normal Limits Breast: Yes: Breast Exam Deferred Cardiology: Yes: Within Normal Limits, Regular Rhythm, Regular Rate, S1, S2 Abdominal: Yes: Within Normal Limits, Normal Bowel Sounds, Non Tender, Flat Genitourinary: Yes: Within Normal Limits Musculoskeletal: Yes: full range of Motion, Back pain, Muscle Pain Extremities: Yes: Within Normal Limits, Normal Range of Motion, Tremors Neurological: Yes: surveillance director II-XII NML intact, Fully Oriented, Alert, Motor Strength 5/5 Integumentary: Yes: Dry Lymphatic: Yes: Within Normal Limits - Diagnostic (1) Opioid dependence with withdrawal Current Visit: Yes Status: Acute (2) Alcohol dependence with uncomplicated withdrawal Current Visit: No Status: Acute (3) Cocaine dependence, uncomplicated Current Visit: No Status: Chronic (4) Diabetes mellitus type 2, noninsulin dependent Current Visit: No Status: Chronic (5) Nicotine dependence Current Visit: No Status: Chronic (6) Weight loss Current Visit: Yes Status: Acute (7) Anxiety and depression Current Visit: Yes Status: Acute (8) Insomnia Current Visit: Yes Status: Acute Cleared for Admission [facility] - Detox or Rehab [facility] Level of Care: Medically Managed Detox Regimen/Protocol: Methadone/Librium [facility] Breath Alcohol Content Breath Alcohol Content: 0 Urine Pregancy Test - Result Urine Test Results: Negative- NO Line Present Urine Drug Screen - Results Drug Screen Negative: No Urine Drug Screen Results: SINA-Cocaine, OPI-Opiates, FEN-Fentanyl
[2018-08-09] MEDS ORDERED: IBUPROFEN 400 MG TABLET (FP) PO PRN (20:30)
[2018-08-09] MEDS ORDERED: guaiFENesin/D-METHORPHAN HB 10 ML UNIT-DOSE CUPS PO PRN (20:30)
[2018-08-09] MEDS ORDERED: MAGNESIUM CITRATE 300 ML BOTTLE PO PRN (20:30)
[2018-08-09] MEDS ORDERED: MENTHOL/PHENOL 1 EACH UD MM PRN (20:30)
[2018-08-09] MEDS ORDERED: METHADONE HCL 10 MG TABLET (FOR DETOX USE ONLY) PO ONE ×2 (20:30→23:00)
[2018-08-09] MEDS ORDERED: P-EPHED 60MG/TRIPROLIDI 2.5MG TABLET PO PRN (20:30)
[2018-08-09] MEDS ORDERED: chlordiazePOXIDE HCL 25 MG CAPSULE PO PRN (20:30)
[2018-08-09] MEDS ORDERED: LOPERAMIDE HCL 2 MG CAPSULE PO PRN (20:30)
[2018-08-09] MEDS ORDERED: ACETAMINOPHEN 325 MG TABLET (FP) PO PRN (20:30)
[2018-08-09] MEDS ORDERED: NICOTINE POLACRILEX 2 MG GUM BC PRN (20:30)
[2018-08-09] MEDS ORDERED: MAG HYDROX/AL HYDROX/SIMETH 30 ML UNIT-DOSE CUP PO PRN (20:30)
[2018-08-09] MEDS ORDERED: MAGNESIUM HYDROX 2400MG/30ML ORAL SUSPENSION 30 ML CUP PO PRN (20:30)
[2018-08-09] MEDS: THIAMINE HCL 100 MG TABLET (FP) PO SCH (21:37)
[2018-08-09] MEDS: NICOTINE 21 MG/24 HOURS TOPICAL PATCH TD SCH (21:37)
[2018-08-09] MEDS ORDERED: MELATONIN 5 MG TABLETS PO PRN (22:00)
[2018-08-09] MEDS: chlordiazePOXIDE HCL 25 MG CAPSULE PO SCH (22:57)
[2018-08-10] MEDS: chlordiazePOXIDE HCL 25 MG CAPSULE PO SCH ×4 (05:14→23:46)
[2018-08-10] MEDS ORDERED: TRIMETHOBENZAMIDE HCL 200MG/2ML INJ IM PRN (06:31)
[2018-08-10] MEDS ORDERED: METHADONE HCL 10 MG TABLET (FOR DETOX USE ONLY) PO SCH (10:00)
--- NOTE | 2018-08-10 10:07 | PN ---
[facility] CIWA - CIWA Score Nausea/Vomitin-Mild Nausea/No Vomiting Muscle Tremors: 3 Anxiety: 2 Agitation: 3 Paroxysmal Sweats: 1-Minimal Palms Moist Orientation: 1-Uncertain about Date Tacttile Disturbances: 1-Very Mild Itch/Numbness Auditory Disturbances: 0-None Visual Disturbances: 0-None Headache: 1-Very Mild CIWA-Ar Total Score: 13 BHS COWS - Scale Resting Pulse: 1= [place] 81-100 Sweatin= Chills/Flushing Restless Observation: 1= Difficult to Sit Still Pupil Size: 0= Normal to Room Light Bone or Joint Aches: 2= Severe Diffuse Aches Runny Nose/ Eye Tearin= Nasal Congestion GI Upset > 30mins: 2= Nausea/Diarrhea Tremor Observation of Outstretched Hands: 2= Slight Tremor Visible Yawning Observation: 1= 1-2x During Session Anxiety or Irritability: 1=Feels Anxious/Irritable Goose Flesh Skin: 0=Smooth Skin COWS Score: 12 S Progress Note (SOAP) Subjective: back pain sweat tremor anxiety trouble sleep at night Objective: 08/10/18 10:06 Vital Signs Temperature 98.4 F 08/10/18 06:00 Pulse Rate 98 H 08/10/18 06:00 Respiratory Rate 18 08/10/18 06:00 Blood Pressure 159/96 08/10/18 06:00 O2 Sat by Pulse Oximetry (%) lab not available Assessment: 08/10/18 10:09 withdrawal sx Plan: continue detox
[2018-08-10] MEDS ORDERED: BACLOFEN 10 MG TABLET (FP) PO ONE (11:00)
--- NOTE | 2018-08-10 11:10 | CONSULT ---
[facility] Psychiatric Consult - Data Date of interview: 08/10/18 Admission source: Self-referred Identifying data: Ms moore is a 38 years old single Black female, mother of 3 children, unemployed, homeless seeking detox treatment for alcohol opioid and cocaine Substance Abuse History: Reports history of alcohol, heroin and cocaine use. Refer to addiction counselor's summary for further information Medical History: Significant for anemia and type 2 diabetes mellitus. Smokes 10 cigarettes daily.
--- NOTE | 2018-08-10 11:12 | EKG ---
Test Reason : Blood Pressure : / mmHG Vent. Rate : 086 BPM Atrial Rate : 086 BPM P-R Int : 142 ms QRS Dur : 082 ms QT Int : 356 ms P-R-T Axes : 070 004 051 degrees QTc Int : 426 ms NORMAL SINUS RHYTHM NORMAL ECG WHEN COMPARED WITH ECG OF 03-DEC-2017 23:29, NO SIGNIFICANT CHANGE WAS FOUND Confirmed by MACIE MACK MD ([id number]) on 08/10/2018 11:11:57 AM Referred By: Confirmed By:MACIE MACK MD
[2018-08-10] MEDS: PRENATAL VITAMINS W/ FOLIC ACID TABLET (FP) PO SCH (11:26)
[2018-08-10] MEDS: NICOTINE 21 MG/24 HOURS TOPICAL PATCH TD SCH (11:31)
--- NOTE | 2018-08-10 11:40 | PN ---
BHS Progress Note Note: Patient is unwilling to be seen by typewriter aligner
[2018-08-10] MEDS: SELENIUM SULFIDE 2.5% LOTION 4 OZ. TP SCH (11:48)
[2018-08-10] MEDS: THIAMINE HCL 100 MG TABLET (FP) PO SCH (23:45)
[2018-08-11] MEDS: hydrOXYzine PAMOATE 25 MG CAPSULE (FP) PO PRN (06:39)
[2018-08-11] MEDS: chlordiazePOXIDE HCL 25 MG CAPSULE PO SCH ×3 (06:39→17:55)
[2018-08-11] MEDS: METHADONE HCL 5 MG TABLET (FOR DETOX USE ONLY) PO SCH (10:57)
[2018-08-11] MEDS: PRENATAL VITAMINS W/ FOLIC ACID TABLET (FP) PO SCH (10:57)
[2018-08-11] MEDS: NICOTINE 21 MG/24 HOURS TOPICAL PATCH TD SCH (10:58)
[2018-08-11] MEDS: SELENIUM SULFIDE 2.5% LOTION 4 OZ. TP SCH (10:58)
--- NOTE | 2018-08-11 11:01 | PN ---
S CIWA - CIWA Score Nausea/Vomitin-No Nausea/No Vomiting Muscle Tremors: 2 Anxiety: 1-Mildly Anxious Agitation: 1-Slight > Activity Paroxysmal Sweats: 1-Minimal Palms Moist Orientation: 1-Uncertain about Date Tacttile Disturbances: 1-Very Mild Itch/Numbness Auditory Disturbances: 0-None Visual Disturbances: 0-None Headache: 1-Very Mild CIWA-Ar Total Score: 8 BHS COWS - Scale Resting Pulse: 2= [place] 101-120 Sweatin= Chills/Flushing Restless Observation: 1= Difficult to Sit Still Pupil Size: 0= Normal to Room Light Bone or Joint Aches: 1= Mild Discomfort Runny Nose/ Eye Tearin= Nasal Congestion GI Upset > 30mins: 1= Stomach Cramp Tremor Observation of Outstretched Hands: 1= Tremor [place], Not Seen Yawning Observation: 0= None Anxiety or Irritability: 2=Irritable/Anxious Goose Flesh Skin: 0=Smooth Skin COWS Score: 10 BHS Progress Note (SOAP) Subjective: body ache muscle cramp tremor sweat trouble sleep at night Objective: 08/11/18 11:15 Vital Signs Temperature 98.2 F 08/11/18 09:25 Pulse Rate 121 H 08/11/18 09:25 Respiratory Rate 18 08/11/18 09:25 Blood Pressure 127/101 H 08/11/18 09:25 O2 Sat by Pulse Oximetry (%) Laboratory Last Values POC Glucometer 188 UNITS (80-120) 08/10/18 11:35 refuses lab work risks benefits discuss that history of ammonia elevation with chronic dermatitis Assessment: 08/11/18 11:17 withdrawal sx Plan: continue detox
[2018-08-11] MEDS: RANITIDINE HCL 150 MG TABLET (FP) PO SCH ×2 (15:04→22:36)
[2018-08-11] MEDS: amLODIPine BESYLATE 2.5 MG TABLET (FP) PO SCH (15:05)
[2018-08-11] MEDS: THIAMINE HCL 100 MG TABLET (FP) PO SCH (22:36)
[2018-08-11] MEDS: chlordiazePOXIDE 5 MG CAPSULE PO SCH (22:36)
[2018-08-12] MEDS: chlordiazePOXIDE 5 MG CAPSULE PO SCH ×3 (05:24→17:51)
[2018-08-12] MEDS: hydrOXYzine PAMOATE 25 MG CAPSULE (FP) PO PRN ×2 (05:34→09:37)
[2018-08-12] MEDS: amLODIPine BESYLATE 2.5 MG TABLET (FP) PO SCH (09:35)
[2018-08-12] MEDS: METHADONE HCL 5 MG TABLET (FOR DETOX USE ONLY) PO SCH (09:35)
[2018-08-12] MEDS: RANITIDINE HCL 150 MG TABLET (FP) PO SCH ×2 (09:35→22:15)
[2018-08-12] MEDS: PRENATAL VITAMINS W/ FOLIC ACID TABLET (FP) PO SCH (09:35)
[2018-08-12] MEDS: SELENIUM SULFIDE 2.5% LOTION 4 OZ. TP SCH (09:36)
[2018-08-12] MEDS: NICOTINE 21 MG/24 HOURS TOPICAL PATCH TD SCH (09:37)
--- NOTE | 2018-08-12 11:58 | PN ---
S CIWA - CIWA Score Nausea/Vomitin-No Nausea/No Vomiting Muscle Tremors: 2 Anxiety: 4-Mod. Anxious/Guarded Agitation: 4-Moderately Restless Paroxysmal Sweats: No Perspiration Orientation: 0-Oriented Tacttile Disturbances: 0-None Auditory Disturbances: 0-None Visual Disturbances: 0-None Headache: 0-None Present CIWA-Ar Total Score: 10 BHS COWS - Scale Resting Pulse: 1= [place] 81-100 Sweatin= No chills or Flushing Restless Observation: 1= Difficult to Sit Still Pupil Size: 0= Normal to Room Light Bone or Joint Aches: 2= Severe Diffuse Aches Runny Nose/ Eye Tearin= None GI Upset > 30mins: 0= None Tremor Observation of Outstretched Hands: 2= Slight Tremor Visible Yawning Observation: 1= 1-2x During Session Anxiety or Irritability: 2=Irritable/Anxious Goose Flesh Skin: 0=Smooth Skin COWS Score: 9 BHS Progress Note (SOAP) Subjective: [PATIENT C/O BODY ACHES, SHAKES AND ANXIETY/RESTLESSNESS. Objective: 08/12/18 11:56 Laboratory Tests 08/10/18 08/11/18 11:35 16:26 POC Glucometer 188 83 Vital Signs Temperature 98.7 F 08/12/18 09:39 Pulse Rate 103 H 08/12/18 09:39 Respiratory Rate 20 08/12/18 09:39 Blood Pressure 137/91 08/12/18 09:39 O2 Sat by Pulse Oximetry (%) SKIN WARM AND DRY ALERT AND ORIENTED X 3 AMB AD SEBASTIAN EXT FULL ROM, MILD TREMORS ANXIOUS AND IRRITABLE Assessment: 08/12/18 11:57 WITHDRAWAL SX Plan: CONTINUE DETOX ORDERED ENCOURAGE ORAL FLUIDS PATIENT REQUESTED INCREASE IN MTD DOSE PATIENT EXPLAINED CURRENT MTD DOSE AND GOAL OF TREATMENT TO TITRATE DOSE NOT INCREASE CONTINUE TO MONITOR CLINICALLY
[2018-08-12] MEDS ORDERED: diphenhydrAMINE HCL 25 MG CAPSULE (FP) PO PRN (15:47)
[2018-08-12] MEDS ORDERED: diphenhydrAMINE HCL 50 MG CAPSULE PO ONE (15:54)
--- NOTE | 2018-08-12 16:47 | PN ---
[facility] Progress Note Note: Psychiatric nurse practitioner note: Lumber Racker informed by RN that patient endorsed not wanting to live after she was denied additional doses of methadone. As per nursing staff, patient is seeking additional methadone and is becoming increasingly irritable and agitated because she is not being given what she request. Lumber Racker able to speak to patient concerning her statement of not wanting to live. Patient stated to grant writer, " I do not want to hurt myself. Nothing here is worth me hurting myself. I am just in pain." Lumber Racker able to communicate with nursing staff and was informed that a one time dose of benadryl 50mg will be ordered for agitation. Patient able to accept medication. Will continue to monitor.
[2018-08-12] MEDS: THIAMINE HCL 100 MG TABLET (FP) PO SCH (22:15)
[2018-08-12] MEDS: chlordiazePOXIDE HCL 10 MG CAPSULE PO SCH (22:49)
[2018-08-13] MEDS: chlordiazePOXIDE HCL 10 MG CAPSULE PO SCH ×3 (06:08→17:12)
[2018-08-13] MEDS: RANITIDINE HCL 150 MG TABLET (FP) PO SCH ×2 (09:31→22:18)
[2018-08-13] MEDS: PRENATAL VITAMINS W/ FOLIC ACID TABLET (FP) PO SCH (09:32)
[2018-08-13] MEDS ORDERED: METHADONE HCL 10 MG TABLET (FOR DETOX USE ONLY) PO SCH (10:00)
--- NOTE | 2018-08-13 11:25 | PN ---
BHS Progress Note (SOAP) Subjective: interrupted sleep, sweats , upset stomach , no n/v d or fever. Objective: 08/13/18 11:24 Vital Signs Temperature 98.2 F 08/13/18 09:26 Pulse Rate 96 H 08/13/18 09:26 Respiratory Rate 18 08/13/18 09:26 Blood Pressure 134/73 08/13/18 09:26 O2 Sat by Pulse Oximetry (%) Laboratory Tests 08/10/18 08/11/18 08/13/18 11:35 16:26 06:54 POC Glucometer 188 83 241 Laboratory Tests 08/10/18 08/11/18 08/13/18 11:35 16:26 06:54 POC Glucometer 188 83 241 08/13/18 11:27 pt aox3 ,nad, lying in bed 08/13/18 11:30 pt refusing labs Assessment: 08/13/18 11:28 withdrawal sx's dyspepsia Plan: cont. detox increase fluids [place] po d/c in am
[2018-08-13] MEDS: amLODIPine BESYLATE 2.5 MG TABLET (FP) PO SCH (11:49)
[2018-08-13] MEDS: NICOTINE 21 MG/24 HOURS TOPICAL PATCH TD SCH (11:49)
[2018-08-13] MEDS: SELENIUM SULFIDE 2.5% LOTION 4 OZ. TP SCH (15:04)
[2018-08-13] MEDS ORDERED: INSULIN (NOVOLOG) ASPART 100 UNITS/ML 10ML VIAL ONE (17:03)
[2018-08-13] MEDS: INSULIN SLIDING SCALE (NOVOLOG) 1 VIAL SQ SCH (17:15)
[2018-08-13] MEDS: THIAMINE HCL 100 MG TABLET (FP) PO SCH (22:18)
[2018-08-14] MEDS ORDERED: METHADONE HCL 5 MG TABLET (FOR DETOX USE ONLY) PO SCH (06:00)
[2018-08-14] MEDS: INSULIN SLIDING SCALE (NOVOLOG) 1 VIAL SQ SCH (06:36)
[2018-08-14 07:08] VITALS: BP 124/98; PULSE 99; TEMP 97.7
--- NOTE | 2018-08-14 08:42 | DS ---
[facility] Detox Discharge Summary Admission Date: 08/09/18 Discharge Date: 08/14/18 - History Present History: Alcohol Dependence, Opioid Dependence - Physical Exam Results Vital Signs: Vital Signs Temperature 97.7 F 08/14/18 07:07 Pulse Rate 99 H 08/14/18 07:07 Respiratory Rate 20 08/14/18 07:07 Blood Pressure 124/98 08/14/18 07:07 O2 Sat by Pulse Oximetry (%) Pertinent Admission Physical Exam Findings: alcohol and opiate withdrawal sx Vital Signs Temperature 97.7 F 08/14/18 07:07 Pulse Rate 99 H 08/14/18 07:07 Respiratory Rate 20 08/14/18 07:07 Blood Pressure 124/98 08/14/18 07:07 O2 Sat by Pulse Oximetry (%) Laboratory Last Values POC Glucometer 108 UNITS (80-120) 08/14/18 05:51 Laboratory Last Values lab not available - Treatment Hospital Course: Detox Protocol Followed, Detoxed Safely, Responded well, Discharged Condition Good, Rehab Referral Accepted Patient has Accepted a Rehab Referral to: [facility] - Medication Discharge Medications: Ambulatory Orders NK [No Known Home Medication] 12/03/17 - Diagnosis (1) Drug-induced mood disorder Status: Suspected (2) Weight loss Status: Acute (3) Alcohol dependence with uncomplicated withdrawal Status: Acute (4) Diabetes mellitus type 2, noninsulin dependent Status: Chronic (5) Nicotine dependence Status: Acute Qualifiers: Nicotine product type: cigarettes Substance use status: in withdrawal Qualified Code(s): F17.213 - Nicotine dependence, cigarettes, with withdrawal (6) Opioid dependence with withdrawal Status: Acute - AMA Did Patient Leave Against Medical Advice: No
== END 2018-08-14 09:49 | disposition home or self-care (01) | DRG 897 ==
LOC: YASAS 13:53 → Y6N 17:22
PROC: HZ2ZZZZ Detoxification Services for Substance Abuse Treatment (ICD-10-PCS; principal; 2018-08-09)
DX: F11.23 Opioid dependence with withdrawal (principal); F14.20 Cocaine dependence, uncomplicated; F10.230 Alcohol dependence with withdrawal, uncomplicated; F17.213 Nicotine dependence, cigarettes, with withdrawal; F19.24 Other psychoactive substance dependence with psychoactive substance-induced mood disorder; F41.8 Other specified anxiety disorders; R10.13 Epigastric pain; E11.9 Type 2 diabetes mellitus without complications; G47.00 Insomnia, unspecified; Z87.898 Personal history of other specified conditions
CPT/HCPCS: 82962; 93005; 93010; J0475

== ENCOUNTER 2018-08-14 10:25 | Emergency (ER) | payer OTHER ==
[2018-08-14] MEDS ORDERED: METHADONE HCL 10 MG TABLET PO ONE (10:46)
--- NOTE | 2018-08-14 10:53 | PDOC ---
History of Present Illness - History of Present Illness Initial Comments: 08/14/18 11:34 The patient is a 38 year old female, with a significant past medical history of polysubstance abuse, depression, DM, who presents to the emergency department with, nausea, vomiting, and chills. Patient notes she was discharged from [facility] when her symptoms onset. While at detox she notes being administered 20mg of methadone when normally 35mg outpatient. Patient endorses that she wants rehab and feels as if she will go back to drugs. She denies recent fevers, headache or dizziness. She denies recent diarrhea or constipation. She denies recent dysuria, frequency, urgency or hematuria. She denies recent chest pain or shortness of breath. Allergies: NKDA Social history: Heroin abuse (on methadone). Fentanyl abuse (by nose). <Jacob Michael - Last Filed: 08/14/18 11:34> - General History Source: Patient, Old Records Exam Limitations: No Limitations <Be Mahajan - Last Filed: 08/14/18 14:24> - General Stated Complaint: ABD PAIN Time Seen by Provider: 08/14/18 10:35 Past History <Jacob Michael - Last Filed: 08/14/18 11:34> - Past Medical History Anemia: Yes (no medication) Asthma: No Cancer: No Cardiac Disorders: No CVA: No COPD: No CHF: No Dementia: No Diabetes: No GI Disorders: No Disorders: No HTN: No Hypercholesterolemia: No Kidney Stones: No Liver Disease: No Seizures: No Thyroid Disease: No - Surgical History Abdominal Surgery: No Appendectomy: No Cardiac Surgery: No Cholecystectomy: No Lung Surgery: No Neurologic Surgery: No Orthopedic Surgery: No - Reproductive History PID: No - Suicide/Smoking/Psychosocial Hx Smoking History: Current every day smoker Have you smoked in the past 12 months: Yes Number of Cigarettes Smoked Daily: 10 'Breaking Loose' booklet given: 08/09/18 Hx Alcohol Use: Yes Drug/Substance Use Hx: Yes Substance Use Type: Alcohol, Cocaine, Heroin Hx Substance Use Treatment: Yes ([facility] 12/05/17 to 12/08/17) <Be Mahajan - Last Filed: 08/14/18 14:24> - Past Medical History Allergies/Adverse Reactions: Allergies Allergy/AdvReac Type Severity Reaction Status Date / Time No Known Allergies Allergy Verified 08/14/18 11:00 Home Medications: Ambulatory Orders NK [No Known Home Medication] 12/03/17 Review of Systems - Review of Systems Able to Perform ROS?: Yes Comments:: 08/14/18 11:34 +GENERAL/CONSTITUTIONAL: Chills. No fever. No weakness. HEAD, EYES, EARS, NOSE AND THROAT: No change in vision. No ear pain or discharge. No sore throat. CARDIOVASCULAR: No chest pain or shortness of breath. RESPIRATORY: No cough, wheezing, or hemoptysis. +GASTROINTESTINAL: Nausea. Vomiting. No nausea, vomiting, diarrhea or constipation. GENITOURINARY: No dysuria, frequency, or change in urination. MUSCULOSKELETAL: No joint or muscle swelling or pain. No neck or back pain. SKIN: No rash NEUROLOGIC: No headache, vertigo, loss of consciousness, or change in strength/ sensation. ENDOCRINE: No increased thirst. No abnormal weight change. HEMATOLOGIC/LYMPHATIC: No anemia, easy bleeding, or history of blood clots. ALLERGIC/IMMUNOLOGIC: No hives or skin allergy. All Other Systems: Reviewed and Negative <Jacob Michael - Last Filed: 08/14/18 11:34> *Physical Exam - Vital Signs Last Vital Signs Temp Pulse Resp BP Pulse Ox 98.4 F 92 H 14 92/58 L 95 08/14/18 10:32 08/14/18 10:32 08/14/18 10:32 08/14/18 10:32 08/14/18 10:32 - Physical Exam Comments: 08/14/18 11:35 +GENERAL: Tearful. Mildly anxious. Awake, alert, and fully oriented, in no acute distress HEAD: No signs of trauma ENT: Hearing grossly normal. Moist mucosa NECK: Normal ROM, supple. LUNGS: Breath sounds equal, clear to auscultation bilaterally. No wheezes, and no crackles HEART: Regular rate and rhythm, normal S1 and S2, no murmurs, rubs or gallops ABDOMEN: Soft, nontender, normoactive bowel sounds. No guarding, no rebound. No masses EXTREMITIES: Normal range of motion, no edema. No clubbing or cyanosis. No cords, erythema, or tenderness NEUROLOGICAL: Cranial nerves II through XII grossly intact. Normal speech, normal gait SKIN: Warm, Dry, normal turgor, no rashes or lesions noted. <Jacob Michael - Last Filed: 08/14/18 11:34> ED Treatment Course - Medications Given in the ED: ED Medications Discontinued Medications Generic Name Dose Route Start Last Admin Trade Name Jennyfer PRN Reason Stop Dose Admin Methadone HCl 20 mg 08/14/18 10:46 08/14/18 11:19 Dolophine - PO 08/14/18 10:47 20 mg ONCE ONE Administration <HughmarycruzJacob donato - Last Filed: 08/14/18 11:34> - LABORATORY CBC & Chemistry Diagram: 08/14/18 12:51 08/14/18 12:51 <Be Mahajan - Last Filed: 08/14/18 14:24> Medical Decision Making - Medical Decision Making 08/14/18 10:47 A portion of this note was documented by scribe services under my direction. I have reviewed the details of the note, within reason, and agree with the documentation with the following case summary and management plan written by me. Patient treated in the ED. Nursing notes are reviewed and incorporated into the medical decision-making. Vital signs reviewed. 38-year-old female patient with history of diabetes and polysubstance abuse presents from [address] [place] [address] for withdrawal. The patient reports that she's been receiving 5 mg of methadone daily at the facility but has been feeling chronically nauseous and sweating and flulike symptoms. She reports typically as an outpatient dosing of 35 mg methadone daily. Upon discharge, patient continued felt the symptoms and came to the ER. She reports that she did not have a place for rehabilitation. The patient's symptoms are consistent with narcotic withdrawal. It is possible that the patient may be somewhat underdosed from the methadone. We'll give the patient additional 20 mg of methadone. information support project manager was contacted and will see the patient regards to inpatient rehabilitation placement. 08/14/18 12:26 I had spoke to the RN at [facility] who was caring for the patient. The patient has been taking methadone at the facility but upon discharge, the patient was prior calm and relaxed started complaining and demanding that she stay at the detox facility. Patient then stated that she was having severe abdominal pain but refused lab work and other workup. Given the circumstances, the patient was sent to ED. 08/14/18 14:19 Laboratory data was reviewed. Patient noted to have an elevated creatinine. However, patient does have a history of chronic kidney disease. The patient insists that she receives hot foods and she does not want to leave the hospital. After lengthy discussion, I advised the patient that I cannot continue to give narcotics and other medications and that she would benefit from outpatient rehabilitation. The continuous pillowcase cutter has seen the patient. I advised that the patient would benefit from such services. Instructions were given to the patient in regards for follow-up. Patient is cleared for discharge. information support project manager had given services referral include rehab for the patient. I discussed the physical exam findings, ancillary test results and final diagnoses with the patient. I answered all of the patient's questions. The patient was satisfied with the care received and felt comfortable with the discharge plan and treatment plan. The patient will call their primary care physician within 24 hours to arrange follow-up and will return to the Emergency Department with any new, persistant or worsening symptoms. <Be Mahajan - Last Filed: 08/14/18 14:24> *DC/Admit/Observation/Transfer - Attestations Scribe Attestion: 08/14/18 11:35 Documentation prepared by Jacob Michael, acting as medical recruiter for Be Mahajan MD. <Jacob Michael - Last Filed: 08/14/18 11:34> - Discharge Dispostion Decision to Admit order: No <Be Mahajan - Last Filed: 08/14/18 14:24> Diagnosis at time of Disposition: Narcotic addiction - Discharge Dispostion Disposition: HOME Condition at time of disposition: Stable - Referrals Referrals: Tobias Ordaz MD [Staff Physician] - - Patient Instructions Printed Discharge Instructions: DI for Opioid Addiction Additional Instructions: You have a history of chronic kidney problems. Please take this copy of your blood work and bring it to your doctor. In the meantime, you would benefit greatly from rehab. The list given to you by the continuous pillowcase cutter are places that can help you. Please go first thing in the morning to rehab or [facility] as discussed prior by [facility].
[2018-08-14 11:09] VITALS: BMI 20.9
[2018-08-14] MEDS ORDERED: METHADONE HCL 10 MG TABLET ONE (11:11)
[2018-08-14] MEDS ORDERED: METOCLOPRAMIDE HCL 10 MG TABLET (FP) PO ONE ×2 (11:57→12:24)
[2018-08-14] MEDS ORDERED: morphine CARPU-JECT 4 MG/1 ML DISP.SYRIN IVPUSH ONE (12:13)
[2018-08-14] MEDS ORDERED: SODIUM CHLORIDE 1,000 ML IV STA (12:13)
[2018-08-14 12:59] LABS: BASO % 0.8 % (0-2.0); EOS % 2.2 % (0-4.5); HEMATOCRIT 28.3 % (32.4-45.2); HEMOGLOBIN 8.9 GM/dL (10.7-15.3); LYMPH % 28.8 % (8-40); MCHC 31.6 g/dl (32.0-36.0); MEAN CELL VOLUME 69.5 fl (80-96); MEAN PLT VOLUME 7.2 fl (7.5-11.1); MONO % 7.1 % (3.8-10.2); NEUT % 61.1 % (42.8-82.8); PLATELET COUNT 296 K/MM3 (134-434); RBC 4.07 M/mm3 (3.60-5.2); RDW 15.3 % (11.6-15.6); WHITE BLOOD COUNT 5.9 K/mm3 (4.0-10.0)
[2018-08-14 13:56] LABS: ALBUMIN 2.9 g/dl (3.4-5.0); ALK PHOS 78 U/L (45-117); ANION GAP 5 MMOL/L (8-16); BILIRUBIN,TOTAL 0.1 mg/dL (0.2-1); BLOOD UREA NITROGEN 59 mg/dL (7-18); CALCIUM 8.6 mg/dL (8.5-10.1); CHLORIDE 108 mmol/L (98-107); CO2 29 mmol/L (21-32); CREATININE 2.3 mg/dL (0.55-1.3); GLUCOSE,RANDOM 82 mg/dL (74-106); LIPASE 101 U/L (73-393); POTASSIUM 5.1 mmol/L (3.5-5.1); SGOT/AST 16 U/L (15-37); SGPT/ALT 21 U/L (13-61); SODIUM 141 mmol/L (136-145); TOT PROT 6.9 g/dl (6.4-8.2)
[2018-08-14 14:21] LABS: ANISOCYTOSIS 1+
[2018-08-14 15:42] VITALS: BP 112/56; PULSE 62; TEMP 98
== END 2018-08-14 15:36 | disposition home or self-care (01) ==
LOC: JER 10:25
PROC: 3E0337Z Introduction of Electrolytic and Water Balance Substance into Peripheral Vein, Percutaneous Approach (ICD-10-PCS; principal; 2018-08-14)
DX: F11.20 Opioid dependence, uncomplicated (principal); E11.9 Type 2 diabetes mellitus without complications; F32.9 Major depressive disorder, single episode, unspecified; F17.210 Nicotine dependence, cigarettes, uncomplicated; D64.9 Anemia, unspecified
CPT/HCPCS: 36415; 80053; 83690; 84703; 85025; 99283-25; J7030

== ENCOUNTER 2018-08-15 10:53 | Inpatient (IN) | payer OTHER ==
[2018-08-15 13:01] VITALS: BMI 21.6
--- NOTE | 2018-08-15 17:33 | HP ---
Admission ROS [facility] Chief Complaint: Seeking admission to Rehab Allergies/Adverse Reactions: Allergies Allergy/AdvReac Type Severity Reaction Status Date / Time No Known Allergies Allergy Verified 08/15/18 18:05 History of Present Illness: 38 years old female with alcohol and opioid dependence is seeking admission to Rehab. Patient reports previous Rehab. at [facility] in 2017. She has medical history of DM type 2, Anemia and depression. She denies suicidal attempt at this time. Exam Limitations: No Limitations - Ebola screening Have you traveled outside of the country in the last 21 days: No Have you had contact with anyone from an Ebola affected area: No Have you been sick,other than usual withdrawal symptoms: No Do you have a fever: No - Review of Systems Constitutional: No Symptoms Reported EENT: reports: No Symptoms Reported Respiratory: reports: No Symptoms reported Cardiac: reports: No Symptoms Reported GI: reports: No Symptoms Reported : reports: No Symptoms Reported Musculoskeletal: reports: No Symptoms Reported Integumentary: reports: No Symptoms Reported Neuro: reports: No Symptoms reported Endocrine: reports: No Symptoms Reported Hematology: reports: No Symptoms Reported Psychiatric: reports: Mood/Affect Appropiate, Orientated x3 Other Systems: Reviewed and Negative Patient History - Patient Medical History Hx Anemia: Yes (Not on medication) Hx Asthma: No Hx Chronic Obstructive Pulmonary Disease (COPD): No Hx Cancer: No Hx Cardiac Disorders: No Hx Congestive Heart Failure: No Hx Hypertension: No Hx Hypercholesterolemia: No Hx Pacemaker: No HX Cerebrovascular Accident: No Hx Seizures: No Hx Dementia: No Hx Diabetes: Yes (Not on medication) Hx Gastrointestinal Disorders: No Hx Liver Disease: No Hx Genitourinary Disorders: No Hx Sexually Transmitted Disorders: No Hx Renal Disease (ESRD): No Hx Thyroid Disease: No Hx Human Immunodeficiency Virus (HIV): No (Negative October 2017) Hx Hepatitis C: No Hx Depression: Yes (Not medication) Hx Suicide Attempt: No (Denies suicidal ideation at this time) Hx Bipolar Disorder: No Hx Schizophrenia: No - Patient Surgical History Past Surgical History: No - PPD History Documented Results: Negative w/proof Implanted On Prior [facility] Admission?: Yes Date: 08/11/18 PPD to be Administered?: No - Reproductive History Patient is a Female of Child Bearing Age (11 -55 yrs old): Yes Last Menstrual Period: 03/04/18 Patient : No - Smoking Cessation Smoking history: Current every day smoker Have you smoked in the past 12 months: Yes Aproximately how many cigarettes per day: 10 Hx Chewing Tobacco Use: No Initiated information on smoking cessation: Yes 'Breaking Loose' booklet given: 08/15/18 - Substance & Tx. History Hx Alcohol Use: Yes Hx Substance Use: Yes Hx Substance Use Treatment: Yes Family Disease History - Family Disease History Family Disease History: Diabetes: Mother (), Other: Father (alive, unknown), Mother Admission Physical Exam [facility] - Vital Signs Vital Signs: Vital Signs - 24 hr 08/15/18 12:58 Temperature 98.4 F Pulse Rate 82 Respiratory 18 Rate Blood Pressure 107/65 - Physical General Appearance: Yes: No Apparent Distress, Disheveled HEENTM: Yes: EOMI, Normal ENT Inspection, Normal Voice, ALEX, Other (missing upper and lower teeth. Reports loss of dentures about a year ago) Respiratory: Yes: Lungs Clear, Normal Breath Sounds, No Respiratory Distress Neck: Yes: Supple Breast: Yes: Breast Exam Deferred Cardiology: Yes: Regular Rhythm, Regular Rate Abdominal: Yes: Normal Bowel Sounds, Soft Genitourinary: Yes: Within Normal Limits Back: Yes: Normal Inspection Musculoskeletal: Yes: Within Normal Limits Extremities: Yes: Normal Inspection Neurological: Yes: Within Normal Limits, Alert, Normal Mood/Affect Integumentary: Yes: Warm Lymphatic: Yes: Within Normal Limits - Diagnostic (1) Anxiety Current Visit: Yes Status: Chronic (2) Depression Current Visit: Yes Status: Chronic Qualifiers: Depression Type: unspecified Qualified Code(s): F32.9 - Major depressive disorder, single episode, unspecified (3) Opioid dependence Current Visit: Yes Status: Chronic Qualifiers: Substance use status: uncomplicated Qualified Code(s): F11.20 - Opioid dependence, uncomplicated (4) Nicotine dependence Current Visit: Yes Status: Chronic Qualifiers: Nicotine product type: cigarettes Substance use status: uncomplicated Qualified Code(s): F17.210 - Nicotine dependence, cigarettes, uncomplicated (5) Anemia Current Visit: Yes Status: Chronic Qualifiers: Iron deficiency anemia type: unspecified iron deficiency (6) Benzodiazepine dependence Current Visit: Yes Status: Chronic (7) Diabetes mellitus type 2, noninsulin dependent Current Visit: No Status: Chronic S Breath Alcohol Content Breath Alcohol Content: 0 Urine Pregancy Test - Result Urine Test Results: Negative- NO Line Present Urine Drug Screen - Results Drug Screen Negative: No Urine Drug Screen Results: OPI-Opiates, BZO-Benzodiazepines, MTD-Methadone, FEN- Fentanyl
[2018-08-15] MEDS ORDERED: NICOTINE POLACRILEX 2 MG GUM BC PRN (17:48)
[2018-08-15] MEDS ORDERED: MAGNESIUM CITRATE 300 ML BOTTLE PO PRN (17:48)
[2018-08-15] MEDS ORDERED: P-EPHED 60MG/TRIPROLIDI 2.5MG TABLET PO PRN (17:48)
[2018-08-15] MEDS ORDERED: MENTHOL/PHENOL 1 EACH UD MM PRN (17:48)
[2018-08-15] MEDS ORDERED: ACETAMINOPHEN 325 MG TABLET (FP) PO PRN (17:48)
[2018-08-15] MEDS ORDERED: MAGNESIUM HYDROX 2400MG/30ML ORAL SUSPENSION 30 ML CUP PO PRN (17:48)
[2018-08-15] MEDS ORDERED: LOPERAMIDE HCL 2 MG CAPSULE PO PRN (17:48)
[2018-08-15] MEDS ORDERED: IBUPROFEN 400 MG TABLET (FP) PO PRN (17:48)
[2018-08-15] MEDS ORDERED: guaiFENesin/D-METHORPHAN HB 10 ML UNIT-DOSE CUPS PO PRN (17:48)
[2018-08-15] MEDS: MELATONIN 5 MG TABLETS PO PRN (22:03)
[2018-08-15] MEDS: THIAMINE HCL 100 MG TABLET (FP) PO SCH (22:03)
[2018-08-16] MEDS: INSULIN SLIDING SCALE (NOVOLOG) 1 VIAL SQ SCH ×3 (06:59→17:16)
[2018-08-16] MEDS: NICOTINE 14 MG/24 HOURS TOPICAL PATCH TD SCH (11:00)
[2018-08-16] MEDS: PRENATAL VITAMINS W/ FOLIC ACID TABLET (FP) PO SCH (11:06)
[2018-08-16] MEDS ORDERED: PNEUMOCOCCAL 23 VACCINE 0.5 ML VIAL IM ONE (12:00)
[2018-08-16] MEDS ORDERED: PNEUMOC 13-VAL CONJ-DIP CRM/PF 0.5 ML DISP.SYRIN IM ONE (12:00)
[2018-08-16] MEDS ORDERED: FLU VACCINE QUAD 60 MCG/0.5 ML (MDV 18-19) IM ONE (12:00)
[2018-08-16 12:56] LABS: URINE APPEARANCE SLCLOUDY; URINE BILIRUBIN NEGATIVE (<2.0 mg/dL); URINE COLOR LTYELLOW; URINE GLUCOSE (UA) NEGATIVE (NEGATIVE); URINE KETONE NEGATIVE (NEGATIVE); URINE LEUK ESTERASE 3+ (NEGATIVE); URINE NITRITE NEGATIVE (NEGATIVE); URINE PROTEIN NEGATIVE (NEGATIVE); URINE UROBILINOGEN NEGATIVE mg/dL (0.2-1.0)
[2018-08-16 13:19] LABS: EPI CELLS FEW /HPF (FEW); URINE MUCUS RARE
--- NOTE | 2018-08-16 14:46 | EKG ---
Test Reason : Blood Pressure : / mmHG Vent. Rate : 089 BPM Atrial Rate : 089 BPM P-R Int : 144 ms QRS Dur : 084 ms QT Int : 364 ms P-R-T Axes : 068 023 054 degrees QTc Int : 442 ms NORMAL SINUS RHYTHM NORMAL ECG WHEN COMPARED WITH ECG OF 09-AUG-2018 21:16, NO SIGNIFICANT CHANGE WAS FOUND Confirmed by MD Smith Edward ([id number]) on 08/16/2018 2:46:20 PM Referred By: Confirmed By:Ji Smith MD
[2018-08-16] MEDS ORDERED: INSULIN (NOVOLOG) ASPART 100 UNITS/ML 10ML VIAL ONE (16:32)
[2018-08-16] MEDS: THIAMINE HCL 100 MG TABLET (FP) PO SCH (21:46)
[2018-08-17] MEDS: MAG HYDROX/AL HYDROX/SIMETH 30 ML UNIT-DOSE CUP PO PRN ×3 (01:29→21:27)
[2018-08-17] MEDS ORDERED: METHADONE HCL 10 MG TABLET PO ONE (02:56)
--- NOTE | 2018-08-17 03:05 | PN ---
S Progress Note Note: MD'S NOTE: CALLED AT 2:50AM TO SEE THE PT. WHO IS IN SEVERE WITHDRAWALS AND WANTS METHADONE WHICH WAS STOPPED ABRUPTLY. SUB: CRAMPY ABD. PAIN++ NAUSEA+ O/E: THE PT. IS SALAZAR X 3, NOT DYSPNIEC, NO CYANOSIS, VERY VERY RESTLESS AND CRYING AND WALKING AROUND+++. S/E: ABD: SOFT, MILD DIFFUSE TENDERNESS+, NO RIGIDITY, B.S.+ CVS: -JVD, NL HEART SOUNDS, NO MURMURS LUNGS:VESICULAR BREATH SOUNDS, NO RALES, NO RHONCHI IMPRESSION: SEVERE WITHDRAWALS FROM OPIATES PLANS: METHADONE 10 MGS. PO X 1 CLONIDINE 0.1 MG PO Q8H PRN CLOSE MONITORING WILL F/U: NEEDED PROVIDER: ROMEO RON MD
[2018-08-17] MEDS: INSULIN SLIDING SCALE (NOVOLOG) 1 VIAL SQ SCH ×3 (08:02→16:40)
--- NOTE | 2018-08-17 09:30 | PN ---
[facility] Progress Note Note: patient with polysubstance dependence with chronic renal insufficiency,alcohol dependence admitted at [facility] from 07/30/18 to 08/04/18 detox seen in er at [facility] on 08/04/18 ,evaluated for abdominal pain admitted in rehab on 08/05/[address] jade earlier conflict information about methadone program ,later denied bp 118/76,p92,r20,t97.6 alert,no respitatory distress heent nomal multiple lesions of scalp,chronic,but on selson lotion lung clear,no wheezing abdomen soft,no disten,no pain ,no tenderness,bowel sound active extremity no pain no swelling patient admitted that she is using heroin and street methadone impression functional gi disorder,withdrawal anemia chronic renal infufficiency treatment flexeril 10 mgs po tid prn clonidine 0.1 mg po bid close monitoring psychiatric evaluation repeat cbc,cmp.,amylase,lipase,ammonia level in am
[2018-08-17] MEDS: cloNIDine HCL 0.1 MG TABLET PO PRN ×2 (09:54→21:26)
[2018-08-17] MEDS: PRENATAL VITAMINS W/ FOLIC ACID TABLET (FP) PO SCH (09:54)
[2018-08-17] MEDS: NICOTINE 14 MG/24 HOURS TOPICAL PATCH TD SCH (09:55)
[2018-08-17] MEDS: CYCLOBENZAPRINE HCL 10 MG TABLET (FP) PO PRN ×2 (10:36→21:26)
--- NOTE | 2018-08-17 12:12 | PN ---
[facility] Progress Note Note: Psychiatric nurse practitioner exchange consultant note: Call received concerning patient who earlier was irritable, difficult to redirect, demanding, screaming and disrobing on the unit. Patient with a history of polysubstance dependence, alcohol dependence, and chronic renal insufficiency. Patient is well known to the facility. Patient with a history of behavior dysregulation when her request for additional methadone is not met. Patient was seen by greeting card writer (08/12) while in detox after she became disruptive and difficult to redirect on the milieu. One time dose of benadryl 50mg was given to patient with good effect. Patient seen by Dr. Ordaz this morning, flexeril 10mg TID and clonidine 0.1 BID ordered. Psych consult ordered. As per nursing staff patient accepted flexeril and clonidine and is currently laying down in bed. Nursing staff informed to contact greeting card writer if further assistance is needed.
[2018-08-17] MEDS: MELATONIN 5 MG TABLETS PO PRN (21:26)
[2018-08-17] MEDS: THIAMINE HCL 100 MG TABLET (FP) PO SCH (21:26)
[2018-08-18] MEDS: MAG HYDROX/AL HYDROX/SIMETH 30 ML UNIT-DOSE CUP PO PRN ×2 (04:21→18:12)
[2018-08-18] MEDS: INSULIN SLIDING SCALE (NOVOLOG) 1 VIAL SQ SCH ×3 (08:24→17:12)
[2018-08-18] MEDS: PRENATAL VITAMINS W/ FOLIC ACID TABLET (FP) PO SCH (11:00)
[2018-08-18] MEDS: NICOTINE 14 MG/24 HOURS TOPICAL PATCH TD SCH (11:00)
[2018-08-18] MEDS: RANITIDINE HCL 150 MG TABLET (FP) PO SCH ×2 (11:20→21:07)
[2018-08-18] MEDS: cloNIDine HCL 0.1 MG TABLET PO PRN ×2 (11:20→21:07)
[2018-08-18] MEDS: BACITRACIN 0.9 GM PACKET TP SCH ×2 (11:20→21:07)
[2018-08-18] MEDS: CYCLOBENZAPRINE HCL 10 MG TABLET (FP) PO PRN ×2 (11:20→21:07)
--- NOTE | 2018-08-18 11:20 | HP ---
Psychiatrist Admission - Data Date of interview: 08/18/18 Admission source: Identifying data: This is the first admeission [address] Inpatient Rehabilitation Unit for this 38 years oldfemale, single mother of one, living with family, unemployed, with history of Alcohol, Opioids dependence, with no psychiatric hospitalization history, with no suicidal, homicidal history, currently sent from [facility] for Rehabilitation ptreatment. Medical History: DM-II, denies other significant medical problems. Psychiatric History: Patient reports no psychiatric hospitalization history, no psychiatric medications taking prior to admission, no suicidal, homicidal history reportable, patient reports [employer], 4 grades, reports never working, currently on SSD due nto learning disorder. As per computer patient has been evaluated by Dr. Govea ON 11/2017 AT [facility], during detox protocol patient was pronounced psychotic with suicidal ideation, sent to [facility] for safety and evaluation, has been assessed there and sent back to [facility] to continue Detox protocol. As per selling underwriter opinion patient suffers intellectual dissability, and ludmila's intelligence and mental ability is below the average. Haldol 1mg po, prn, q4 for agitation iwas ordered. Physical/Sexual Abuse/Trauma History: Denies, unclear Vital Signs: Vital Signs - 24 hr 08/17/18 08/18/18 08/18/18 20:50 00:30 03:30 Pulse Rate 85 Respiratory 18 18 Rate Blood Pressure 101/64 Allergies/Adverse Reactions: Allergies Allergy/AdvReac Type Severity Reaction Status Date / Time No Known Allergies Allergy Verified 08/15/18 18:05 - Substance Abuse/Tx History Hx Alcohol Use: Yes (Long history of Alcohol dependence) Hx Substance Use: Yes Substance Use Type: Opiates (Long history of Opioids dependence) Mental Status Exam - Mental Status Exam Alert and Oriented to: Person Cognitive Function: Fair Patient Appearance: Unkempt Mood: Anxious, Irritable Affect: Inappropriate, Labile Patient Behavior: Restless, Cooperative, Agitated Speech Pattern: Appropriate Voice Loudness: Mildly Soft/Quiet Thought Process: Circumstantial, Goal Oriented Thought Disorder: Being Controlled Hallucinations: Denies Suicidal Ideation: Denies Homicidal Ideation: Denies Insight/Judgement: Fair Sleep: Difficulty falling asleep Appetite: Weight loss Muscle strength/Tone: Mild Hypertonicity, Moderate Hypertonicity Gait/Station: Deferred Additional Comments: Obsevration. Rehab Unit Care. Consider MMTP referral Psychiatric Findings - Problem List ([place] 1, 2,3) (1) Intellectual disability Current Visit: Yes Status: Acute (2) Anemia Current Visit: Yes Status: Chronic Qualifiers: Iron deficiency anemia type: unspecified iron deficiency (3) Benzodiazepine dependence Current Visit: Yes Status: Chronic (4) Cannabis dependence Current Visit: Yes Status: Chronic (5) Cocaine dependence, uncomplicated Current Visit: Yes Status: Chronic (6) Nicotine dependence Current Visit: Yes Status: Chronic Qualifiers: Nicotine product type: cigarettes Substance use status: uncomplicated Qualified Code(s): F17.210 - Nicotine dependence, cigarettes, uncomplicated (7) Opioid dependence Current Visit: Yes Status: Chronic Qualifiers: Substance use status: uncomplicated Qualified Code(s): F11.20 - Opioid dependence, uncomplicated (8) Alcohol dependence with uncomplicated withdrawal Current Visit: No Status: Acute (9) Opioid dependence with withdrawal Current Visit: No Status: Acute (10) Weight loss Current Visit: No Status: Acute (11) Drug-induced mood disorder Current Visit: No Status: Suspected Comment: Suspected. - Initial Treatment Plan Initial Treatment Plan: Haldol 1mg po q4 prn for anxiety and agitation. Obsevration. Rehab Unit Care. Consider MMTP referral
[2018-08-18] MEDS ORDERED: HALOPERIDOL 1 MG TABLET (FP) PO PRN (11:53)
--- NOTE | 2018-08-18 15:13 | PN ---
S Progress Note Note: NURSE REPORTS PT HAS LESIONS AND DRY FLAKY SCALP. PT IS VERY AGITATED AND RESTLESS AND UNABLE TO TALK TO PROVIDER HX OF THE LESIONS BUT ONLY INDICATED "DON'T YOU KNOW IT'S DRUGS?". EXAM:MULTIPLE DEPIGMENTED HEALED AREAS ON HEAD AND UPPER EXTREMITIES WITH A SCABBED LESION ON MIDDLE OF SCALP. Vital Signs - 24 hr 08/17/18 08/18/18 08/18/18 20:50 00:30 03:30 Pulse Rate 85 Respiratory 18 18 Rate Blood Pressure 101/64 08/18/18 08/18/18 09:37 11:51 Pulse Rate 97 H 97 H Respiratory 18 18 Rate Blood Pressure 128/80 128/80 HEAD LESIONS PLAN:BACITRACIN OINTMENT APPLY DIRECTED. SELSUN BLUE SHAMPOO TWICE A WEEK.
[2018-08-18] MEDS ORDERED: SELENIUM SULFIDE 2.5% LOTION 4 OZ. TP SCH (18:00)
[2018-08-18] MEDS: THIAMINE HCL 100 MG TABLET (FP) PO SCH (21:07)
[2018-08-19] MEDS: MAG HYDROX/AL HYDROX/SIMETH 30 ML UNIT-DOSE CUP PO PRN ×3 (04:12→19:52)
[2018-08-19] MEDS: INSULIN SLIDING SCALE (NOVOLOG) 1 VIAL SQ SCH ×3 (07:27→16:54)
[2018-08-19] MEDS: BACITRACIN 0.9 GM PACKET TP SCH ×2 (09:03→21:20)
[2018-08-19] MEDS: NICOTINE 14 MG/24 HOURS TOPICAL PATCH TD SCH (09:03)
[2018-08-19] MEDS: PRENATAL VITAMINS W/ FOLIC ACID TABLET (FP) PO SCH (09:04)
[2018-08-19] MEDS: RANITIDINE HCL 150 MG TABLET (FP) PO SCH ×2 (10:55→21:20)
--- NOTE | 2018-08-19 12:38 | PN ---
[facility] Progress Note Note: PT IS ALERT O X 3 AND CALMER TODAY. THIS WOOL HANKER AND NURSE MARK EXPLAINED TO PT SHE WILL NEED REPEAT OF HER LABS(SEE ORIGINAL LABS IN DETOX) THIS AFTERNOON INSTEAD OF EARLY IN THE MORNING AND PT AGREES NOW. APPARENTLY, PT HAD REFUSED X 3 REPORTED BY STAFF. Vital Signs 08/19/18 08/19/18 08/19/18 06:30 07:11 10:41 Temperature 98.9 F Pulse Rate 90 82 Respiratory 17 18 18 Rate Blood Pressure 118/82 138/82 NAD PLAN;REPEAT LABS DIRECTED.
[2018-08-19] MEDS: cloNIDine HCL 0.1 MG TABLET PO PRN (13:29)
[2018-08-19] MEDS: CYCLOBENZAPRINE HCL 10 MG TABLET (FP) PO PRN ×2 (13:29→21:20)
[2018-08-19 14:29] LABS: HEMATOCRIT 30.9 % (32.4-45.2); HEMOGLOBIN 9.5 GM/dL (10.7-15.3); MCH 21.6 pg (25.7-33.7); MCHC 30.7 g/dl (32.0-36.0); MEAN CELL VOLUME 70.4 fl (80-96); MEAN PLT VOLUME 7.7 fl (7.5-11.1); PLATELET COUNT 383 K/MM3 (134-434); RBC 4.39 M/mm3 (3.60-5.2); RDW 15.6 % (11.6-15.6); WHITE BLOOD COUNT 8.9 K/mm3 (4.0-10.0)
[2018-08-19 14:37] LABS: ALBUMIN 2.9 g/dl (3.4-5.0); ALK PHOS 88 U/L (45-117); AMYLASE 110 U/L (25-115); ANION GAP 5 MMOL/L (8-16); BILIRUBIN,TOTAL 0.1 mg/dL (0.2-1); BLOOD UREA NITROGEN 51 mg/dL (7-18); CALCIUM 8.9 mg/dL (8.5-10.1); CHLORIDE 104 mmol/L (98-107); CO2 27 mmol/L (21-32); GLUCOSE,RANDOM 269 mg/dL (74-106); LIPASE 110 U/L (73-393); PHOSPHOROUS 3.7 mg/dL (2.5-4.9); POTASSIUM 5.7 mmol/L (3.5-5.1); SGOT/AST 16 U/L (15-37); SGPT/ALT 25 U/L (13-61); SODIUM 136 mmol/L (136-145); TOT PROT 7.5 g/dl (6.4-8.2)
[2018-08-19] MEDS: THIAMINE HCL 100 MG TABLET (FP) PO SCH (21:20)
[2018-08-19] MEDS: MELATONIN 5 MG TABLETS PO PRN (21:22)
[2018-08-20] MEDS: MAG HYDROX/AL HYDROX/SIMETH 30 ML UNIT-DOSE CUP PO PRN ×3 (03:33→18:14)
[2018-08-20] MEDS: CYCLOBENZAPRINE HCL 10 MG TABLET (FP) PO PRN ×3 (06:00→21:17)
[2018-08-20] MEDS: cloNIDine HCL 0.1 MG TABLET PO PRN ×2 (06:00→14:51)
[2018-08-20] MEDS: INSULIN SLIDING SCALE (NOVOLOG) 1 VIAL SQ SCH ×3 (07:33→17:21)
[2018-08-20] MEDS: BACITRACIN 0.9 GM PACKET TP SCH ×2 (09:05→21:20)
[2018-08-20] MEDS: RANITIDINE HCL 150 MG TABLET (FP) PO SCH ×2 (09:05→21:17)
[2018-08-20] MEDS: NICOTINE 14 MG/24 HOURS TOPICAL PATCH TD SCH (09:05)
[2018-08-20] MEDS: PRENATAL VITAMINS W/ FOLIC ACID TABLET (FP) PO SCH (09:05)
[2018-08-20] MEDS: DOCUSATE SODIUM 100 MG CAPSULE (FP) PO SCH ×2 (10:20→21:17)
[2018-08-20] MEDS: FERROUS SO4 325 MG TABLET (FP) PO SCH ×2 (10:20→21:17)
[2018-08-20] MEDS: THIAMINE HCL 100 MG TABLET (FP) PO SCH (21:17)
[2018-08-20] MEDS: MELATONIN 5 MG TABLETS PO PRN (21:18)
[2018-08-21] MEDS: MAG HYDROX/AL HYDROX/SIMETH 30 ML UNIT-DOSE CUP PO PRN (03:22)
[2018-08-21] MEDS: cloNIDine HCL 0.1 MG TABLET PO PRN (06:17)
[2018-08-21] MEDS: CYCLOBENZAPRINE HCL 10 MG TABLET (FP) PO PRN (06:17)
[2018-08-21] MEDS: INSULIN SLIDING SCALE (NOVOLOG) 1 VIAL SQ SCH ×2 (06:27→11:30)
[2018-08-21 07:15] VITALS: BP 131/83; PULSE 106; TEMP 99
[2018-08-21] MEDS: DOCUSATE SODIUM 100 MG CAPSULE (FP) PO SCH (10:38)
[2018-08-21] MEDS: FERROUS SO4 325 MG TABLET (FP) PO SCH (10:38)
[2018-08-21] MEDS: RANITIDINE HCL 150 MG TABLET (FP) PO SCH (10:38)
[2018-08-21] MEDS: PRENATAL VITAMINS W/ FOLIC ACID TABLET (FP) PO SCH (10:38)
[2018-08-21] MEDS: NICOTINE 14 MG/24 HOURS TOPICAL PATCH TD SCH (10:38)
[2018-08-21] MEDS: BACITRACIN 0.9 GM PACKET TP SCH (10:39)
--- NOTE | 2018-08-21 15:42 | PN ---
[facility] Progress Note Note: THE NURSE, ARA INFORMED THIS EXPANSION JOINT FINISHER THAT PT WANTS TO LEAVE AMA. CAME TO SEE PT WHO WAS ALREADY DRESSED WITH HER PROPERTY STANDING BY THE NURSING STATION, CALM AND NOT AGITATED. PT REPORTS HER PMD [facility] AT [address], [place] [address]. PH: [phone]. PT REFUSED FOR THIS PROVIDER TO CALL PMD TO SET UP APPOINTMENT FOR A FOLLOW UP RE: HER ABNORMAL LABS STATING "I DON'T WANT YOU TO CALL HIM". PT REFUSED TO SIGN CONSENT TO THAT EFFECT. PT WAS SEE SEEN BY DR. LEWIS AND COUNSELORS ERICK NELSON AND JOSE BUT INTERVENTION WAS UNSUCCESSFUL PATIENT INSISTS ON LEAVING TREATMENT TODAY. Vital Signs (72 hours) 08/18/18 08/19/18 08/19/18 22:10 00:30 03:30 Temperature Pulse Rate 93 H Respiratory 18 17 17 Rate Blood Pressure 101/68 08/19/18 08/19/18 08/19/18 06:30 07:11 10:41 Temperature 98.9 F Pulse Rate 90 82 Respiratory 17 18 18 Rate Blood Pressure 118/82 138/82 08/20/18 08/20/18 08/20/18 00:30 03:30 07:04 Temperature 98.1 F Pulse Rate 105 H Respiratory 18 18 18 Rate Blood Pressure 149/100 08/20/18 08/20/18 08/21/18 14:50 17:48 00:30 Temperature Pulse Rate 108 H 112 H Respiratory 16 Rate Blood Pressure 152/95 83/50 L 08/21/18 07:14 Temperature 99.0 F Pulse Rate 106 H Respiratory 16 Rate Blood Pressure 131/83 Laboratory Tests 08/15/18 08/16/18 08/16/18 19:09 06:38 09:20 WBC RBC Hgb Hct MCV MCH MCHC RDW Plt Count MPV Sodium Potassium Chloride Carbon Dioxide Anion Gap BUN Creatinine Creat Clearance w eGFR POC Glucometer 105 114 Random Glucose Calcium Phosphorus Total Bilirubin AST ALT Alkaline Phosphatase Ammonia Total Protein Albumin Total Amylase Lipase Urine Color Ltyellow Urine Appearance Slcloudy Urine pH 5.0 Ur Specific Lavinia 1.018 Urine Protein Negative Urine Glucose (UA) Negative Urine Ketones Negative Urine Blood Negative Urine Nitrite Negative Urine Bilirubin Negative Urine Urobilinogen Negative Ur Leukocyte Esterase 3+ H Urine WBC (Auto) 46 Urine RBC (Auto) 5 Ur Epithelial Cells Few Urine Mucus Rare RPR Titer HIV 1&2 Antibody Screen HIV P24 Antigen 08/16/18 08/16/18 08/17/18 12:08 17:15 02:51 WBC RBC Hgb Hct MCV MCH MCHC RDW Plt Count MPV Sodium Potassium Chloride Carbon Dioxide Anion Gap BUN Creatinine Creat Clearance w eGFR POC Glucometer 141 167 116 Random Glucose Calcium Phosphorus Total Bilirubin AST ALT Alkaline Phosphatase Ammonia Total Protein Albumin Total Amylase Lipase Urine Color Urine Appearance Urine pH Ur Specific Lavinia Urine Protein Urine Glucose (UA) Urine Ketones Urine Blood Urine Nitrite Urine Bilirubin Urine Urobilinogen Ur Leukocyte Esterase Urine WBC (Auto) Urine RBC (Auto) Ur Epithelial Cells Urine Mucus RPR Titer HIV 1&2 Antibody Screen HIV P24 Antigen 08/17/18 08/18/18 08/18/18 17:21 11:37 17:11 WBC RBC Hgb Hct MCV MCH MCHC RDW Plt Count MPV Sodium Potassium Chloride Carbon Dioxide Anion Gap BUN Creatinine Creat Clearance w eGFR POC Glucometer 113 167 169 Random Glucose Calcium Phosphorus Total Bilirubin AST ALT Alkaline Phosphatase Ammonia Total Protein Albumin Total Amylase Lipase Urine Color Urine Appearance Urine pH Ur Specific Lavinia Urine Protein Urine Glucose (UA) Urine Ketones Urine Blood Urine Nitrite Urine Bilirubin Urine Urobilinogen Ur Leukocyte Esterase Urine WBC (Auto) Urine RBC (Auto) Ur Epithelial Cells Urine Mucus RPR Titer HIV 1&2 Antibody Screen HIV P24 Antigen 08/19/18 08/19/18 08/19/18 06:08 12:30 12:30 WBC 8.9 RBC 4.39 Hgb 9.5 L Hct 30.9 L MCV 70.4 L MCH 21.6 L MCHC 30.7 L RDW 15.6 Plt Count 383 D MPV 7.7 Sodium 136 Potassium 5.7 H Chloride 104 Carbon Dioxide 27 Anion Gap 5 L BUN 51 H Creatinine 2.0 H Creat Clearance w eGFR 27.74 POC Glucometer 229 Random Glucose 269 H Calcium 8.9 Phosphorus 3.7 Total Bilirubin 0.1 L AST 16 ALT 25 Alkaline Phosphatase 88 Ammonia Total Protein 7.5 Albumin 2.9 L Total Amylase 110 Lipase 110 Urine Color Urine Appearance Urine pH Ur Specific Lavinia Urine Protein Urine Glucose (UA) Urine Ketones Urine Blood Urine Nitrite Urine Bilirubin Urine Urobilinogen Ur Leukocyte Esterase Urine WBC (Auto) Urine RBC (Auto) Ur Epithelial Cells Urine Mucus RPR Titer HIV 1&2 Antibody Screen HIV P24 Antigen 08/19/18 08/19/18 08/19/18 12:30 13:20 15:40 WBC RBC Hgb Hct MCV MCH MCHC RDW Plt Count MPV Sodium Potassium Chloride Carbon Dioxide Anion Gap BUN Creatinine Creat Clearance w eGFR POC Glucometer Random Glucose Calcium Phosphorus Total Bilirubin AST ALT Alkaline Phosphatase Ammonia 26.01 Total Protein Albumin Total Amylase Lipase Urine Color Urine Appearance Urine pH Ur Specific Lavinia Urine Protein Urine Glucose (UA) Urine Ketones Urine Blood Urine Nitrite Urine Bilirubin Urine Urobilinogen Ur Leukocyte Esterase Urine WBC (Auto) Urine RBC (Auto) Ur Epithelial Cells Urine Mucus RPR Titer Nonreactive HIV 1&2 Antibody Screen Negative HIV P24 Antigen Negative 08/20/18 08/20/18 08/21/18 11:56 17:19 06:15 WBC RBC Hgb Hct MCV MCH MCHC RDW Plt Count MPV Sodium Potassium Chloride Carbon Dioxide Anion Gap BUN Creatinine Creat Clearance w eGFR POC Glucometer 199 118 222 Random Glucose Calcium Phosphorus Total Bilirubin AST ALT Alkaline Phosphatase Ammonia Total Protein Albumin Total Amylase Lipase Urine Color Urine Appearance Urine pH Ur Specific Lavinia Urine Protein Urine Glucose (UA) Urine Ketones Urine Blood Urine Nitrite Urine Bilirubin Urine Urobilinogen Ur Leukocyte Esterase Urine WBC (Auto) Urine RBC (Auto) Ur Epithelial Cells Urine Mucus RPR Titer HIV 1&2 Antibody Screen HIV P24 Antigen 08/21/18 11:18 WBC RBC Hgb Hct MCV MCH MCHC RDW Plt Count MPV Sodium Potassium Chloride Carbon Dioxide Anion Gap BUN Creatinine Creat Clearance w eGFR POC Glucometer 257 Random Glucose Calcium Phosphorus Total Bilirubin AST ALT Alkaline Phosphatase Ammonia Total Protein Albumin Total Amylase Lipase Urine Color Urine Appearance Urine pH Ur Specific Lavinia Urine Protein Urine Glucose (UA) Urine Ketones Urine Blood Urine Nitrite Urine Bilirubin Urine Urobilinogen Ur Leukocyte Esterase Urine WBC (Auto) Urine RBC (Auto) Ur Epithelial Cells Urine Mucus RPR Titer HIV 1&2 Antibody Screen HIV P24 Antigen NAD PT SIGNED OUT AMA. PT WAS GIVEN A COPY OF LABS ABOVE TO FOLLOW UP WITH HIS PMD AND INSTRUCTED TO TAKE IT TO HER PMD WITHIN ONE WEEK OF LEAVING HERE. PT WAS ALSO TOLD TO SEEK MEDICAL CARE AT AN ER NEAR HER IN CASE OF AN EMERGENCY WHEN NEEDED.
== END 2018-08-21 14:52 | disposition left against medical advice (07) | DRG 894 ==
LOC: YASAS 10:53 → Y3E 16:34
PROVIDERS: ADMIT Psychiatry & Neurology Psychiatry; ATTEND Psychiatry & Neurology Psychiatry
PROC: HZ42ZZZ Group Counseling for Substance Abuse Treatment, Cognitive-Behavioral (ICD-10-PCS; principal; 2018-08-15)
DX: F11.23 Opioid dependence with withdrawal (principal); F13.20 Sedative, hypnotic or anxiolytic dependence, uncomplicated; F14.20 Cocaine dependence, uncomplicated; F10.20 Alcohol dependence, uncomplicated; F12.20 Cannabis dependence, uncomplicated; F17.210 Nicotine dependence, cigarettes, uncomplicated; F79 Unspecified intellectual disabilities; F19.24 Other psychoactive substance dependence with psychoactive substance-induced mood disorder; D50.9 Iron deficiency anemia, unspecified; E11.9 Type 2 diabetes mellitus without complications; N18.9 Chronic kidney disease, unspecified
CPT/HCPCS: 36415; 80053; 81003; 81015; 82140; 82150; 82962; 83690; 84100; 85027; 86593; 87389; 90688; 90732; 93005; 93010; G0008; G0009; J0735